=== PATIENT | female | born 1945 | race Caucasian/White ===

== ENCOUNTER 2021-08-11 01:37 | Day surgery (SDC) | payer MEDICARE, SELFPAY ==
[2021-08-01 15:10] VITALS: BMI 44.3
[2021-08-11 09:30] VITALS: BP 153/86; PULSE 69; RESP 18; TEMP 36.6; O2SAT 100; BMI 44.4
[2021-08-11] MEDS: LACTATED RINGERS 1,000 ML 150 ML IV CONT (09:59)
--- NOTE | 2021-08-11 10:35 | WPDANESEPPF ---
Anes - Initial Pre Proc Eval Procedure: Operation Date: 08/11/21 10:30 Proposed Procedures p Screening Colonoscopy - Harjinder Godinez MD Date/Time: 08/11/21 10:35 Surgeon: Harjinder Godinez MD Pre Op Diagnosis: hx of colon polyps Patient Data Age: 76 Gender: F Height: 1.52 m Weight: 103.2 kg Last Vital Signs Temp 97.9 F 08/11/21 09:30 Pulse 69 08/11/21 09:30 Resp 18 08/11/21 09:30 BP 153/86 H 08/11/21 09:30 Pulse Ox 100 08/11/21 09:30 Allergies Allergy/AdvReac Type Severity Reaction Status Date / Time No Known Allergies Allergy Mild Verified 08/11/21 09:37 Home Medications Medication Instructions Recorded Confirmed Type aspirin 81 mg tablet,delayed 81 mg PO DAILY 06/02/19 08/11/21 History release latanoprost 0.005 % eye drops 1 drop EACH EYE DAILY 06/02/19 08/11/21 History multivit with 1 tablet PO DAILY 06/02/19 08/11/21 History fgtslddh-brvo-PM-lutein 8 mg iron-400 mcg-300 mcg tablet omega-3 fatty acids 1,000 mg 1,000 mg PO DAILY 06/02/19 08/11/21 History capsule meloxicam 15 mg tablet 15 mg PO DAILY 08/21/19 08/11/21 History lisinopril 10 mg tablet 10 mg PO DAILY #90 tablet 04/20/21 08/11/21 Rx ascorbic acid (vitamin C) 500 mg 500 mg PO DAILY cap 07/04/21 08/11/21 History capsule calcium carbonate 600 mg-vitamin 1 cap PO DAILY cap 07/04/21 08/11/21 History D3 25 mcg (1,000 unit) capsule meclizine 25 mg PO PRN PRN 08/01/21 08/11/21 History omeprazole 20 mg capsule,delayed 20 mg PO DAILY #90 cap 08/01/21 08/11/21 Rx release wheat dextrin-calc glucon,lact 3 g PO DAILY 08/01/21 08/11/21 History [Benefiber Plus Calcium] Patient hx anesthesia problems: none Family hx anesthesia problems: none Results Review: All pre-operative results and documents have been reviewed as part of the pre-operative evaluation. [facility] Past Medical History Medical History Backache without radiation Essential (primary) hypertension GERD without esophagitis H/O vaginal delivery 1967 and 1969 History of colon cancer History of kidney stones 1989 History of stress test 2009 Lipids abnormal Neuroma toe Osteopenia Unspecified osteoarthritis, unspecified site Surgical History Surgical History History of lithotripsy 1989 History of tonsillectomy History of total right knee replacement (~01/21/20) Family History Family History Grandparent Liver cancer Mother Heart disease Arthritis Dementia Father Heart disease Arthritis Social History Social History Smoking status: Former smoker Tobacco type: cigarettes Second hand tobacco smoke exposure: No Smoking end date: 05/07/98 Alcohol intake: never Substance use: never Substance use type: does not use Living arrangements: with family Spiritual care concerns: No Anes - Eval Final PreProcedure Day of Procedure 08/11/21 10:35 Patient weight: morbidly obese Heart: regular rate and rhythm Lungs: clear to auscultation Airway: Mallampati scale class III Neurological: alert and oriented Last oral intake: >/= 8 hours ASA classification: III Emergent: no Anesthetic plan: proceed Anesthesia type and monitoring: general GIVS and standard monitoring Results Review: All pre-operative results and documents have been reviewed as part of the pre-operative evaluation. Informed Consent: The patient's anesthetic plan and its attendant risks and benefits were discussed with the patient/family/POA. Questions were solicited and answers provided to the satisfaction of the patient/family/POA.
--- NOTE | 2021-08-11 10:35 | WPDGICN ---
Assessment and Plan Assessment and plan (1) History of colon polyps: Code(s): Z86.010 - Personal history of colonic polyps Status: Acute Assessment and Plan: Patient has a prior history of colon polyps removed by colonoscopy 2017. For this reason patient presents for surveillance colonoscopy. Further recommendations will be given after endoscopy. GI Consult Note Consult date/time: 08/11/21 10:35 HPI: Sol Crespo is a 76 year old female Presents for screening colonoscopy. Patient has a prior history of colon polyps in 2017. She reports her current weight appetite and bowel movements are normal. She denies abdominal pain. She has had no bleeding. Family history significant her brother had colon resection for an uncertain etiology. She presents today for neoplasia screening. Review of Systems Review of Systems: All systems reviewed & are unremarkable except as noted in HPI and below PMFSH Past Medical History Medical History Backache without radiation Essential (primary) hypertension GERD without esophagitis H/O vaginal delivery 1967 and 1969 History of colon cancer History of kidney stones 1989 History of stress test 2008 Lipids abnormal Neuroma toe Osteopenia Unspecified osteoarthritis, unspecified site Surgical History Surgical History History of lithotripsy 1989 History of tonsillectomy History of total right knee replacement (~01/21/20) Family History Family History Grandparent Liver cancer Mother Heart disease Arthritis Dementia Father Heart disease Arthritis Social History Social History Smoking status: Former smoker Tobacco type: cigarettes Second hand tobacco smoke exposure: No Smoking end date: 05/07/98 Alcohol intake: never Substance use: never Substance use type: does not use Living arrangements: with family Spiritual care concerns: No Meds Home Medications and Allergies Home Medications Medication Instructions Recorded Confirmed Type aspirin 81 mg tablet,delayed 81 mg PO DAILY 06/02/19 08/11/21 History release latanoprost 0.005 % eye drops 1 drop EACH EYE DAILY 06/02/19 08/11/21 History multivit with 1 tablet PO DAILY 06/02/19 08/11/21 History cnfalcjy-xydd-UO-lutein 8 mg iron-400 mcg-300 mcg tablet omega-3 fatty acids 1,000 mg 1,000 mg PO DAILY 06/02/19 08/11/21 History capsule meloxicam 15 mg tablet 15 mg PO DAILY 08/21/19 08/11/21 History lisinopril 10 mg tablet 10 mg PO DAILY #90 tablet 04/20/21 08/11/21 Rx ascorbic acid (vitamin C) 500 mg 500 mg PO DAILY cap 07/04/21 08/11/21 History capsule calcium carbonate 600 mg-vitamin 1 cap PO DAILY cap 07/04/21 08/11/21 History D3 25 mcg (1,000 unit) capsule meclizine 25 mg PO PRN PRN 08/01/21 08/11/21 History omeprazole 20 mg capsule,delayed 20 mg PO DAILY #90 cap 08/01/21 08/11/21 Rx release wheat dextrin-calc glucon,lact 3 g PO DAILY 08/01/21 08/11/21 History [Benefiber Plus Calcium] Allergies Allergy/AdvReac Type Severity Reaction Status Date / Time No Known Allergies Allergy Mild Verified 08/11/21 09:37 Vital Signs Vital Signs - 24 hr 08/11/21 09:30 Temperature 97.9 F Pulse Rate 69 Respiratory Rate 18 Blood Pressure 153/86 H Pulse Oximetry 100 Exam Narrative: Physical exam reveals patient to be alert. Vital signs stable. HEENT exam is unremarkable. Patient is anicteric. Lungs are clear to auscultation and percussion. Heart is without murmur or extra sounds. Abdominal exam bowel sounds present soft nontender with no organomegaly. Digital external rectal exam is normal.
[2021-08-11 11:03] VITALS: BP 99/51; PULSE 82; RESP 17; O2SAT 98
[2021-08-11 11:13] VITALS: BP 117/60; PULSE 73; RESP 15; O2SAT 98
[2021-08-11 11:23] VITALS: BP 144/79; PULSE 66; RESP 18; O2SAT 98
== END 2021-08-11 11:36 | disposition home or self-care (01) ==
PROVIDERS: PCP Family Medicine; Visit Provider Internal Medicine Gastroenterology
PROC: 0DJD8ZZ Inspection of Lower Intestinal Tract, Via Natural or Artificial Opening Endoscopic (ICD-10-PCS; CPT 45378; principal; 2021-08-11 10:30)
DX: Z12.11 Encounter for screening for malignant neoplasm of colon (principal); K64.8 Other hemorrhoids; K57.30 Diverticulosis of large intestine without perforation or abscess without bleeding; Z86.010 Personal history of colon polyps; I10 Essential (primary) hypertension; K21.9 Gastro-esophageal reflux disease without esophagitis; Z85.038 Personal history of other malignant neoplasm of large intestine; Z87.891 Personal history of nicotine dependence; Z79.82 Long term (current) use of aspirin; E66.01 Morbid (severe) obesity due to excess calories; Z68.41 Body mass index [BMI] 40.0-44.9, adult
CPT/HCPCS: G0105; J2704; J7120

== ENCOUNTER 2022-01-03 08:00 | Outpatient (CLI) | payer MEDICARE, SELFPAY ==
[2022-01-03 18:53] LABS: Basophils Percent Auto 0.2 % (0.2-1.2); Eosinophils Absolute Auto 0.1 K/mm3 (0-0.3); Eosinophils Percent Auto 2.6 % (0-4.4); Hematocrit 41.6 % (37.0-47.0); Hemoglobin 13.8 g/dL (12.0-15.0); Immature Granulocyte Absolute 0.02 K/mm3 (0.00-0.031); Immature Granulocyte Percent A 0.4 % (0-0.5); Lymphocytes Absolute Auto 2.19 K/mm3 (0.9-3.2); Lymphocytes Percent Auto 44.2 % (18.3-44.2); Mean Corpuscular HGB Conc 33.2 g/dl (32-36); Mean Corpuscular Hemoglobin 31.4 pg (26-34); Mean Corpuscular Volume 94.5 fl (80-100); Mean Platelet Volume 11.5 fl (7.4-10.4); Monocytes Absolute Auto 0.5 K/mm3 (0.1-0.6); Monocytes Percent Auto 10.3 % (2.6-8.5); Neutrophils Absolute Auto 2.1 K/mm3 (1.3-6.7); Neutrophils Percent Auto 42.3 % (45.5-73.1); Platelet Count Result 163 k/mm3 (150-375); Red Cell Distribution Width 12.8 % (11.5-14.5)
[2022-01-03 19:04] LABS: Alanine Aminotransferase 42 U/L (6-35); Albumin Level 3.9 g/dL (3.5-5.1); Alkaline Phosphatase 70 U/L (38-126); Anion Gap 9 mmol/L (8-16); Aspartate Amino Transferase 49 U/L (14-36); Bilirubin,Total 0.6 mg/dL (0.2-1.3); Blood Urea Nitrogen 16 mg/dL (7-17); Calcium 9.2 mg/dL (8.4-10.2); Carbon Dioxide 28 mmol/L (22-30); Chloride 102 mmol/L (98-107); Cholesterol 171 mg/dL (0-200); Estimated Glomerular Filt Rate > 60; Glucose 96 mg/dL (65-110); HDL Direct 35 mg/dL; Potassium 4.1 mmol/L (3.4-5.0); Sodium 139 mmol/L (137-145); Triglycerides 111 mg/dL (<150)
[2022-01-03 19:14] LABS: LDL Cholesterol Direct 107 mg/dL
== END 2022-01-03 08:01 | disposition home or self-care (01) ==
PROVIDERS: PCP Family Medicine; Visit Provider Nurse Practitioner
DX: E78.5 Hyperlipidemia, unspecified (principal); I10 Essential (primary) hypertension
CPT/HCPCS: 36415; 80053; 80061; 85025

== ENCOUNTER 2022-08-16 08:45 | Outpatient (RCR) | payer MEDICARE, SELFPAY ==
--- NOTE | 2022-07-20 09:33 | PTOPEVAL1 ---
Assessment and note entered by Marya Rdz, PT Evaluation Information Assessment Status Evaluation Diagnosis BPPV Onset 3 weeks ago Subjective Information Reports has had this previously a couple years ago , had therapy at [place]. Still has the exercises from this but MD wanted her to do therapy. Has also tried to increase water intake and symptoms went away and all of a sudden is back again. Notices the most at night when has been laying for a while, has to sit on edge of bed before gets up . States is more lite headed and when gets up to go to bathroom walks like I'm drunk and notes sometimes with turning over in bed has symptoms. Sometimes with getting up from being in recliner also has difficulty getting balance. Reported Pain Level Pain Score 0: Self Report Assessment PT Clinical Summary Pt presents w/ c/o dizziness with position changes and reports difficulty with ambulation at times as well. Evaluation shoes (+) L S [place]pike, and (+) L Horizontal Roll as well as decreased static balance and [place] of 40/56. Pt will benefit from physical therapy to address BPPV, balance, and gait to reduce risk of fall with injury and return to prior level of function without dizziness. Plan of Care Interventions Neuro Re-education,Patient/Caregiver Educati, Therapeutic Activities,Therapeutic Exercise PT Services Indicated Yes Treatment Frequency and 1-2x weekly x 4 weeks Duration These treatments will address the objective and functional deficits as defined above. The patient will be advanced safely and appropriately in order for the patient to progress towards his/her prior level of function. Additional exercises will be introduced and as well as a comprehensive home exercise program upon discharge, if needed, ?to ensure carryover of functional gains achieved in the clinic. This treatment plan has been reviewed and agreement upon by the patient.
--- NOTE | 2022-07-28 11:56 | PTOPPROGNS ---
Assessment and note entered by Marya Rdz, PT Assessment Status Progress Report Diagnosis BPPV Subjective Information Reports feels 100% better , states no longer has issues getting up in the middle of the night to go to the bathroom, turning over in bed, or getting up from the recliner Assessment PT Clinical Summary Pt reports feeling 100% improved overall. Wilbero's no symptoms w/ [place]-Hallpike or roll testing today. Static balance is greatly improved in her [place] scores and static balance testing. She does continue to have some balance deficits but she reports she is at her normative balance. Pt educated on plan of care, regarding resolutions of symptoms. Appointments all cancelled with exception of last appointment (original reevaluation date) due to completion of therapy plan of care. Should patient continue to feel 100% improved, she will call to cancel last appointment. Otherwise she has been release to return to normal activities. Plan of Care Likely D/C pending maintenance of progress outside of therapy. These treatments will address the objective and functional deficits as defined above. The patient will be advanced safely and appropriately in order for the patient to progress towards his/her prior level of function. Additional exercises will be introduced and as well as a comprehensive home exercise program upon discharge, if needed, ?to ensure carryover of functional gains achieved in the clinic. This treatment plan has been reviewed and agreement upon by the patient.
--- NOTE | 2022-08-16 11:12 | PTOPDC ---
Assessment and note entered by Marya Rdz, PT Assessment Status Discharge Diagnosis BPPV Subjective Information After return to therapy and change of [place] side, pt reports feeling 95% better. States only time has symptoms is sometimes wiht bending way over and returning to standing Reported Pain Level Pain Score 0: Self Report Assessment PT Clinical Summary Pt initially treated for left sided BPPV and reported 100% resolution quickly. Approximately 1- 2 weeks later, pt called stating having increased symptoms. With reevaluation pt showed symptoms related to right sided BPPV. Was treated for right side and is now reports 95% improved overall. Reports having mild deficits with bending way down forward and this isn't all the time. She reports improvement in symptoms with rolling over in bed an with getting up at night to go to the bathroom. She has also met all therapist related goals for balance and function. Thus patient is being discharged due to completion of therapy.
== END 2022-08-16 11:24 | disposition home or self-care (01) ==
LOC: ANHHIPT 08:45
PROVIDERS: PCP Family Medicine; Visit Provider Family Medicine
DX: H81.13 Benign paroxysmal vertigo, bilateral (principal)
CPT/HCPCS: 95992; 97110; 97112; 97161

== ENCOUNTER 2023-01-29 10:49 | Outpatient (CLI) | payer MEDICARE, SELFPAY ==
[2023-01-29 18:39] LABS: Alanine Aminotransferase 22 U/L (6-35); Albumin Level 3.8 g/dL (3.5-5.1); Alkaline Phosphatase 73 U/L (38-126); Anion Gap 3 mmol/L (8-16); Aspartate Amino Transferase 27 U/L (14-36); Bilirubin,Total 0.5 mg/dL (0.2-1.3); Blood Urea Nitrogen 19 mg/dL (7-17); Calcium 9.4 mg/dL (8.4-10.2); Carbon Dioxide 32 mmol/L (22-30); Chloride 103 mmol/L (98-107); Estimated Glomerular Filt Rate > 60; Glucose 94 mg/dL (65-110); Potassium 4.8 mmol/L (3.4-5.0); Sodium 138 mmol/L (137-145)
== END 2023-01-29 10:50 | disposition home or self-care (01) ==
PROVIDERS: PCP Family Medicine; Visit Provider Family Medicine
DX: E78.89 Other lipoprotein metabolism disorders (principal); I10 Essential (primary) hypertension; Z79.899 Other long term (current) drug therapy
CPT/HCPCS: 36415; 80053

== ENCOUNTER 2023-07-11 11:06 | Outpatient (CLI) | payer MEDICARE, SELFPAY ==
--- NOTE | ~2023-07-11 | XR_ITS ---
EXAMINATION: XR lumbar spine min 4V DATE: 07/11/2023 11:24 INDICATION: Right-sided low back pain. TECHNIQUE: 5 views of lumbar spine were obtained. COMPARISON: Lumbar spine radiographs 11/28/2012 FINDINGS: There is 12 degrees dextroscoliosis of thoracolumbar spine. There is 3 mm retrolisthesis of L2 on L3. There is 6 degrees anterolisthesis of L4 on L5. Vertebral body heights are normal. There i s severely decreased disc height at L2-L3, mildly decreased disc height at L3-L4, moderately decrease d disc height at L4-L5, and severely decreased disc height at L5-S1. There is multilevel facet joint osteoarthritis, severe in the lower lumbar spine. IMPRESSION: 1. Severe lumbar spondylosis. 2. Thoracolumbar dextroscoliosis. Reviewed, dictated and finalized at location E. SCREENER OPERATOR
== END 2023-07-11 11:07 ==
PROVIDERS: PCP Family Medicine; Visit Provider Family Medicine
DX: M43.06 Spondylolysis, lumbar region (principal); M41.85 Other forms of scoliosis, thoracolumbar region
CPT/HCPCS: 72110

== ENCOUNTER 2023-07-12 08:21 | Outpatient (CLI) | payer MEDICARE, SELFPAY ==
[2023-07-12 19:23] LABS: Alanine Aminotransferase 26 U/L (6-35); Albumin Level 3.9 g/dL (3.5-5.1); Alkaline Phosphatase 95 U/L (38-126); Anion Gap 5 mmol/L (8-16); Aspartate Amino Transferase 48 U/L (14-36); Bilirubin,Total 0.7 mg/dL (0.2-1.3); Blood Urea Nitrogen 19 mg/dL (7-17); Calcium 9.4 mg/dL (8.4-10.2); Carbon Dioxide 29 mmol/L (22-30); Chloride 105 mmol/L (98-107); Cholesterol 170 mg/dL (0-200); Estimated Glomerular Filt Rate > 60; Glucose 91 mg/dL (65-110); HDL Direct 42 mg/dL; Potassium 4.6 mmol/L (3.4-5.0); Sodium 139 mmol/L (137-145); Triglycerides 89 mg/dL (<150)
[2023-07-12 19:34] LABS: LDL Cholesterol Direct 109 mg/dL
[2023-07-12 19:37] LABS: Basophils Percent Auto 0.5 % (0.2-1.2); Eosinophils Absolute Auto 0.1 K/mm3 (0-0.3); Eosinophils Percent Auto 2.2 % (0-4.4); Hematocrit 43.9 % (37.0-47.0); Hemoglobin 14.4 g/dL (12.0-15.0); Immature Granulocyte Absolute 0.01 K/mm3 (0.00-0.031); Immature Granulocyte Percent A 0.2 % (0-0.5); Lymphocytes Absolute Auto 2.37 K/mm3 (0.9-3.2); Lymphocytes Percent Auto 40.4 % (18.3-44.2); Mean Corpuscular HGB Conc 32.8 g/dl (32-36); Mean Corpuscular Hemoglobin 31.4 pg (26-34); Mean Corpuscular Volume 95.9 fl (80-100); Mean Platelet Volume 11.6 fl (7.4-10.4); Monocytes Absolute Auto 0.7 K/mm3 (0.1-0.6); Monocytes Percent Auto 11.1 % (2.6-8.5); Neutrophils Absolute Auto 2.7 K/mm3 (1.3-6.7); Neutrophils Percent Auto 45.6 % (45.5-73.1); Platelet Count Result 196 k/mm3 (150-375); Red Blood Count 4.58 M/mm3 (4.2-5.4); Red Cell Distribution Width 12.5 % (11.5-14.5); White Blood Count 5.9 K/mm3 (4.5-10.0)
[2023-07-12 20:26] LABS: Hemoglobin A1C 5.2 % (<5.7)
[2023-07-12 20:44] LABS: Vitamin D 25 Hydroxy 61.8 ng/mL
[2023-07-12 20:58] LABS: Thyroid Stimulating Hormone Reflex < 0.015 uIU/mL (0.465-4.68)
[2023-07-12 22:07] LABS: Free T4 Free Thyroxine Reflex 1.17 ng/dL (0.78-2.19)
[2023-07-12 23:28] LABS: Total Triiodothyronine (T3) 1.58 NG/ML (0.97-1.69)
== END 2023-07-12 08:22 | disposition home or self-care (01) ==
PROVIDERS: PCP Family Medicine; Visit Provider Family Medicine
DX: H81.13 Benign paroxysmal vertigo, bilateral (principal); I10 Essential (primary) hypertension; E78.5 Hyperlipidemia, unspecified; R73.9 Hyperglycemia, unspecified; E53.8 Deficiency of other specified B group vitamins; E55.9 Vitamin D deficiency, unspecified
CPT/HCPCS: 36415; 80053; 80061; 82306; 82607; 83036; 84439; 84443; 84480; 85025

== ENCOUNTER 2023-07-17 09:08 | Outpatient (CLI) | payer MEDICARE, SELFPAY ==
--- NOTE | 2023-07-31 16:51 | WPDSLEEPSTUD ---
Sleep Study Date of Study: 07/17/23 Ordering Provider: Mery Singer MD Interpreting Physician: Ruthie Bernard DO Sleep Study Type: Split Polysomnogram Height: 1.52 m Weight: 104.326 kg Body Mass Index: 44.9 Neck Circumference (inches): 17 [place]: 8 Reason for Sleep Study Nocturia Sleep History The patient is a 78-year-old female with hypertension, GERD, chronic low back pain, osteopenia and history of tobacco use that had a sleep study by primary care physician for evaluation of sleep apnea. The patient denies awakening from sleep short of breath. She frequently awakens at night with heartburn, belching or cough. She denies snoring loudly enough that others complain. She occasionally has trouble sleeping when she has a cold. She denies waking up gasping for air throughout the night. She denies having breathing problems at night observed by herself or others. She rarely sweats excessively at night. She denies having heart palpitations or irregular heartbeats during the night. She occasionally falls asleep during the day but never while driving. She denies sleep paralysis, cataplexy and hypnagogic / hypnopompic hallucinations. She denies having trouble at school or work due to sleepiness. She denies feeling afraid of going to sleep. She occasionally has nightmares. She rarely remembers her dreams. She occasionally has thoughts racing through her mind. She denies feeling sad or depressed. She rarely has anxiety. She occasionally has muscular tension. She frequently notices parts of her body jerk. She denies kicking during the night. She rarely has crawling and aching feelings in her legs but occasionally has leg pain during the night. She denies grinding her teeth during sleep and denies awakening with morning jaw pain. She is constantly bothered by pain during the day and frequently awakened by pain during the night. She denies waking up feeling stiff in the morning. She rarely wakes up with sore or achy muscles. She rarely wakes up with pain in the neck, spine and other joints. She goes to bed between 9-930 p.m. on both weekdays and weekends. He can take her up to an hour to fall asleep. She wakes up at least 3 times throughout the night to urinate. She wakes up at 6:30 a.m. on both weekdays and weekends. She typically gets 9 hours of sleep per night. She will stay in bed for a few minutes after waking up in the morning. She currently lives with her . She denies consuming any caffeinated beverages within 2 hours of bedtime. She denies engaging in physical exercise before bedtime. She will read before falling asleep. She will occasionally take naps in the afternoon or the evening but they are not refreshing. She quit smoking cigarettes 24 years ago. She denies caffeine, alcohol and recreational drug use. [facility] Past Medical History Medical History Backache without radiation Chronic low back pain with right-sided sciatica Environmental allergies Essential (primary) hypertension GERD without esophagitis H/O vaginal delivery 1967 and 1969 History of colon polyps History of COVID-19 (~11/2021) History of kidney stones 1989 History of stress test 2008 Lipids abnormal Neuroma toe Osteopenia Unspecified osteoarthritis, unspecified site Vitamin D deficiency Surgical History Surgical History History of lithotripsy (~1989) 1989 History of tonsillectomy (~1953) History of total right knee replacement (~01/21/20) Family History Family History Grandparent Liver cancer Mother Heart disease Arthritis Dementia Father Heart disease Arthritis Social History Social History Smoking status: Former smoker Tobacco type: cigarettes Second hand toba
[2023-08-01 18:30] VITALS: BMI 44.9
== END 2023-07-18 07:24 | disposition home or self-care (01) ==
LOC: ANHCSM 09:08
PROVIDERS: PCP Family Medicine; Visit Provider Family Medicine
DX: G47.33 Obstructive sleep apnea (adult) (pediatric) (principal); R40.0 Somnolence; I10 Essential (primary) hypertension
CPT/HCPCS: 95811

== ENCOUNTER 2023-08-10 09:59 | Outpatient (CLI) | payer MEDICARE, SELFPAY ==
--- NOTE | ~2023-08-10 | MM_ITS ---
EXAMINATION: MM screening sheela BI w [facility] HISTORY: Screening TECHNIQUE: Craniocaudal and mediolateral oblique 3-D tomosynthesis images were obtained and synthetic 2-D images were generated. CAD analysis was submitted and interpreted. COMPARISON: Not dense: There are scattered areas of fibroglandular density. BREAST PARENCHYMAL COMPOSITION: FINDINGS: There is no evidence of suspicious mass, calcification, or architectural distortion to sugg est malignancy in either breast. There has been no suspicious interval change. IMPRESSION: 1. No mammographic evidence of malignancy. 2. Recommend routine screening mammography in one year. BI-RADS Category 1: Negative Reviewed, dictated and finalized at location A.
--- NOTE | ~2023-08-10 | DEXA_ITS ---
Bone Density Report Name: GUNJAN CORNELL Age: 78 Sex: Female Ethnicity: White Date of : 1945 Indication: postmenopausal; screening for osteoporosis; Referring Provider: RIA ALCOCER Study: Bone densitometry was performed. Exam Date: August 10, 2023 Accession number: [id number] Bone Density: Region BMD T-score Z-score Classification AP Spine(L1-L4) 1.069 0.2 2.8 Normal Femoral Neck (Left) 0.725 -1.1 1.1 Osteopenia Total Hip (Left) 0.929 -0.1 1.9 Normal Femoral Neck (Right) 0.681 -1.5 0.7 Osteopenia Total Hip (Right) 0.840 -0.8 1.1 Normal Total Hip Mean 0.885 -0.5 1.5 Normal World Health Organization criteria for BMD impression classify patients as: Normal (T-score at or above -1.0), Osteopenia (T-score between -1.0 and -2.5), or Osteoporosis (T-score at or below -2.5). 10-year Fracture Risk(1): Major Osteoporotic Fracture 11% Hip Fracture 2.3% Reported Risk Factors: [place] (), Neck BMD=0.681, BMI=43.6 (1) FRAX(R) Version 3.08. Fracture probability calculated for an untreated patient. Fracture probability may be lower if the patient has received treatment. Clinical Information Provided by Patient: Has used the following medications: Vitamin D, Calcium, VIT C Patient maximum height was 61.5 Menopause Age: 54 No regular weight bearing exercise Drinks caffeinated beverages Onset of menses at age 13 Number of children 2 Impression: The patient has low bone mass, based on the Right Femoral Neck T-score. The patient has an estimated ten-year risk of hip fracture of 2.3% and an estimated ten-year risk of major fracture of 11%, based on the WHO FRAX algorithm. Discussion: BONE DENSITY IS LOW AT ONE OR MORE SKELETAL SITES. This patient's lowest T-score is low at one or more skeletal sites. It meets the World Health Organization's (WHO) criteria for ?low bone mass? (T-score between -1.0 and -2.5). The patient's 10-year risk of fracture as calculated by FRAX is less than the threshold where pharmacological therapy is recommended by the National Osteoporosis Foundation (NOF). However, all treatment decisions require clinical judgment and consideration of individual patient factors, including patient preferences, comorbidities, previous drug use, risk factors not captured in the FRAX model (e.g., frailty, falls, vitamin D deficiency, increased bone turnover, interval significant decline in bone density) and possible under or overestimation of fracture risk by FRAX. The patient should follow a healthful lifestyle (good nutrition with adequate calcium and vitamin D, and appropriate weight-bearing exercise). Follow-Up: Consider repeating this study in 2 to 3 years to reassess this patient's status, or sooner if there is some new clinical indication. Reported by: HENRIETTA
== END 2023-08-10 10:00 | disposition home or self-care (01) ==
LOC: ANHIMG 10:00
PROVIDERS: PCP Family Medicine; Visit Provider Family Medicine
DX: Z12.31 Encounter for screening mammogram for malignant neoplasm of breast (principal); Z78.0 Asymptomatic menopausal state; M85.852 Other specified disorders of bone density and structure, left thigh; M85.851 Other specified disorders of bone density and structure, right thigh
CPT/HCPCS: 77063; 77067; 77080

== ENCOUNTER 2023-08-27 12:31 | Outpatient (CLI) | payer MEDICARE, SELFPAY ==
[2023-08-27 19:31] LABS: Thyroid Stimulating Hormone 0.104 uIU/mL (0.465-4.680); Total Triiodothyronine (T3) 1.31 NG/ML (0.97-1.69)
[2023-08-27 19:50] LABS: Free T4 Free Thyroxine 1.29 ng/mL (0.78-2.19)
[2023-08-29 08:09] LABS: Thyroid Peroxidase Antibodies 28 IU/mL (<9)
[2023-09-03 20:58] LABS: Thyroid Stimulating Immunoglob 259 % baseline (<140)
== END 2023-08-27 12:32 | disposition home or self-care (01) ==
PROVIDERS: PCP Family Medicine; Visit Provider Family Medicine
DX: R40.0 Somnolence (principal); R79.89 Other specified abnormal findings of blood chemistry
CPT/HCPCS: 36415; 83519; 84439; 84443; 84445; 84480; 86376; 86800

== ENCOUNTER 2023-09-14 12:30 | Outpatient (RCR) | payer MEDICARE, SELFPAY ==
--- NOTE | 2023-07-27 17:31 | PTOPEVAL1 ---
Assessment and note entered by Marya Rdz, PT Evaluation Information Assessment Status Evaluation Diagnosis lumbago with sciatica right side, chronic pain Therapy conditions weakness abnormal posture other abnormalities of mobility and gait Subjective Information Pt states right foot tingles like it had been sleeping. This was a month ago also had pain in the outside of the right leg up to the hip. Not it depends on how she sits, if is in a chair wiht longer leg support, or getting in the car the foot will tingle then when gets out will hurt in the knee and right leg and can hardly walk. Has always had back pain and previously had sciatica but didn't feel like this. Went to the MD and got muscle relaxer, took them as needed. Has been feeling good last couple of days, but notes anytime gets in car or truck will have increased pain Her exercises in the morning include ankle pumps, long arc quads, and pelvic tilts x 10 each Reported Pain Level Pain Score 0: Self Report Assessment PT Clinical Summary Pt presents with chronic pain history and recent sciatica of the right side. Chart review shows multiple levels of degeneration and anterolisthesis. She also shows multiple areas of decreased flexibility including hamstrings and hip flexors bilat, as well as weakness and difficulty activating gluteal muscles. Pt will benefit from physical therapy to address deficits, improve pain , and improve function Plan of Care Interventions Electrical Stimulation,Gait Training,Hot Pack/Cold Pack,Manual Therapy,Mechanical Traction,Neuro Re- education,Therapeutic Activities,Therapeutic Exercise,Ultrasound PT Services Indicated Yes Treatment Frequency and 1-2x weekly x 12 visits Duration These treatments will address the objective and functional deficits as defined above. The patient will be advanced safely and appropriately in order for the patient to progress towards his/her prior level of function. Additional exercises will be introduced and as well as a comprehensive home exercise program upon discharge, if needed, ?to ensure carryover of functional gains achieved in the clinic. This treatment plan has been reviewed and agreement upon by the patient.
--- NOTE | 2023-07-27 17:32 | OPREHPOC ---
Outpatient Therapy Plan of Care This is a Multidisciplinary Plan of Care that may contain components documented by all disciplines (PT, OT, and ST.) PT Goal 1 Goal Pt will be independent in HEP Pt will verbalize understanding of diagnosis and prognosis Target Visit 6 PT Problem 2 PT Problem #2 Pain PT Goal 1 Goal Pt will report greatest pain level at 3/10 or less to improve ADLs and activities Target Visit 6 PT Goal 2 Goal Pt will report greatest pain level at 1/10 or less to improve ADLs and activities Target Visit 12 PT Problem 3 PT Problem #3 Impaired Gait PT Goal 1 Goal Pt will demo decreased Trendelenburg bilat to show improved lumbopelvic stability Target Visit 12 PT Goal 2 Goal Pt will demo upright posture with walking and appropriate hip extension Target Visit 12 PT Problem 4 PT Problem #4 Impaired Flexibility PT Goal 1 Goal Pt will demo improved hip flexor flexibility to allow hip extension for gait and posture Target Visit 12
--- NOTE | 2023-09-14 14:25 | PTOPDC ---
Assessment and note entered by Marya Rdz, PT Evaluation Information Assessment Status Progress Diagnosis lumbago with sciatica right side, chronic pain Subjective Information Self-perceived improvement: 90% Pt reports tingling and pain in the right LE has resolved (with exception of last night) Is no longer having to take medication for discomfort or pain Getting into and out of car or truck is no longer bothersome. Pt reports she was at a meeting last night sitting in a metal folding chair. At first was sitting sideways in the chair ~10 minutes then corrected this. Sat in a normal position about 30 more minutes but when went to get up almost couldn't get up. Had pain and tingling in the right leg and a pain/pinching in the right front of the thigh. Had significant difficulty wiht driving home. Got out of car wiggled around in standing and the pain resolved. Pt has also noted wearing her lumbar belt while cutting grass on riding mower has greatly improved Reported Pain Level Pain Score 0: Self Report Assessment PT Clinical Summary Pt has made significant progress with therapy as seen by improved pain reports, improved strength testing, and improved outcome measure scores. Pt reports feeling 90% improved overall. Her HEP has been updated and patient has been educated on when to return to therapy in the future if is needed. Thus patient is being discharged from therapy services at this time for completion of program. Plan of Care PT Services Indicated No
== END 2023-09-14 16:14 | disposition home or self-care (01) ==
LOC: ANHHIPT 12:30
PROVIDERS: PCP Family Medicine; Visit Provider Family Medicine
DX: M54.41 Lumbago with sciatica, right side (principal); G89.29 Other chronic pain
CPT/HCPCS: 97014; 97110; 97112; 97140; 97162; 97750; G0283

== ENCOUNTER 2024-01-31 09:25 | Outpatient (CLI) | payer MEDICARE, SELFPAY ==
[2024-01-31 15:19] LABS: Alanine Aminotransferase 23 U/L (6-35); Alkaline Phosphatase 89 U/L (38-126); Anion Gap 7 mmol/L (4-12); Aspartate Amino Transferase 55 U/L (14-36); Bilirubin,Total 0.5 mg/dL (0.2-1.3); Blood Urea Nitrogen 22 mg/dL (7-17); Calcium 9.2 mg/dL (8.4-10.2); Carbon Dioxide 29 mmol/L (22-30); Chloride 101 mmol/L (98-107); Estimated Glomerular Filt Rate > 60; Glucose 78 mg/dL (65-110); Potassium 4.4 mmol/L (3.4-5.0); Sodium 137 mmol/L (137-145)
[2024-01-31 15:32] LABS: Free T4 Free Thyroxine 1.06 ng/mL (0.78-2.19)
[2024-01-31 15:48] LABS: Thyroid Stimulating Hormone 0.652 uIU/mL (0.465-4.680); Total Triiodothyronine (T3) 1.36 NG/ML (0.97-1.69)
== END 2024-01-31 09:26 | disposition home or self-care (01) ==
PROVIDERS: PCP Family Medicine; Visit Provider Family Medicine
DX: I10 Essential (primary) hypertension (principal); R79.89 Other specified abnormal findings of blood chemistry
CPT/HCPCS: 36415; 80053; 84439; 84443; 84480

== ENCOUNTER 2024-04-15 13:15 | Outpatient (RCR) | payer MEDICARE, SELFPAY ==
--- NOTE | 2024-02-11 17:04 | PTOPEVAL1 ---
Assessment and note entered by Marya Rdz, PT Evaluation Information Assessment Status Evaluation Diagnosis lumbago with sciatica R, Oth chronic pain ICD-10 Condition Codes (PT) Pain in low back M54.50,M54.16,Pain in right hip M25.551,R26.9,Weakness R53.1 Onset chronic Subjective Information Pt states when she sits in her recliner, or certain chairs her right foot will tingle, then her right hip will hurt and the right side of her back will start to hurt. States hips will hurt in the groin. when standing the lower back will hurt. This morning had pain on left side, but sometimes will also be on the right side. States after sitting will have increased hip pain up to 9/10. States will hop when first walking, states feels like a cramp or spasm. After a few walking steps will improve. Does her exercises every morning, and this helps the back pain. Has not been doing steps recently. Doctor states is a pinched nerve, that she needs back exercises. Pt states thinks the hip has an issue. Reported Pain Level Pain Score 0,2: Self Report Assessment PT Clinical Summary Pt presents to therapy with complaints of right hip pain, tingling in right foot with sitting in certain positions, and back pain with standing and walking. Pt demos decreased LEFT hip mobility compared to right, decreased lumbar mobility, lumbar distraction reduces pain, demo's reduced flexibility of right hamstring and bilat quads, overall decreased strength, and gait abnormalities . Pt will benefit from physical therapy to address deficits, reduce pain, resolve tingling, and return to PLOF with minimal discomfort. Plan of Care Interventions Electrical Stimulation,Hot Pack/Cold Pack,Manual Therapy,Mechanical Traction,Neuro Re-education, Patient/Caregiver Educati,Therapeutic Activities, Therapeutic Exercise,Self-Care/Home Management, Ultrasound,Other Other Interventions IASTM, taping PT Services Indicated Yes Treatment Frequency and 1-2x weekly x 16 visits Duration These treatments will address the objective and functional deficits as defined above. The patient will be advanced safely and appropriately in order for the patient to progress towards his/her prior level of function. Additional exercises will be introduced and as well as a comprehensive home exercise program upon discharge, if needed, ?to ensure carryover of functional gains achieved in the clinic. This treatment plan has been reviewed and agreement upon by the patient.
--- NOTE | 2024-02-11 17:04 | OPREHPOC ---
Outpatient Therapy Plan of Care This is a Multidisciplinary Plan of Care that may contain components documented by all disciplines (PT, OT, and ST.) PT Goal 1 Goal / Goal Update Pt will be independent in HEP Pt will verbalize understanding of diagnosis and prognosis Target Visit 10 PT Problem 2 PT Problem #2 Pain PT Goal 1 Goal / Goal Update Pt will report greatest pain level at 5/10 or less in right hip to improve ADLs and activities Target Visit 10 PT Goal 2 Goal / Goal Update Pt will report resolution of pain to return to PLOF Target Visit 16 PT Problem 3 PT Problem #3 Impaired Flexibility PT Goal 1 Goal / Goal Update Pt will demo hamstring flexibility of RLE equal to LLE to offload right hip and low back discomfort Target Visit 10 PT Goal 2 Goal / Goal Update Pt will demo quads flexibility off 100 degrees or greater to offload strain on lumbar spine and improve upright postures with gait. Target Visit 16 PT Problem 4 PT Problem #4 Impaired Gait PT Goal 1 Goal / Goal Update Pt will demo improvement of gluteus medius weakness with more stable pelvic position during gait activity. Target Visit 16 PT Problem 5 PT Problem #5 Impaired Strength PT Goal 1 Goal / Goal Update Pt will demo TRAM strength of 3+/5 or greater Target Visit 10 PT Goal 2 Goal / Goal Update Pt will demo strength of gluteus medius bilat 4/5 or greater for improved lumbopelvic stability Target Visit 16
--- NOTE | 2024-03-21 12:50 | PTOPPROG ---
Assessment and note entered by Marya Rdz, PT Evaluation Information Assessment Status Progress Diagnosis lumbago with sciatica R, Oth chronic pain ICD-10 Condition Codes (PT) Pain in low back M54.50,M54.16,Pain in right hip M25.551,R26.9,Weakness R53.1 Onset chronic Subjective Information Pt states is confused as her left hip hurts now, right is usually the painful one and will have pain into glute and down leg. States had relief after last session for a short time but was hurting that night and has been hurting since. Does have a back brace would wear during her mowing. Groin pain has resolved. After sitting long periods is still having to hop the first few steps. Is now able to go up steps when couldn't before Right side has felt better since deep tissue a few sessions ago. Self-perceived improvement: 50-75% Assessment PT Clinical Summary Pt has attended therapy consistently for R/L hip pain and low back pain. She reports feeling 50% improved today and has met multiple short term goals. Today presentation cont to suggest lumbopelvic instability with minimal progression in strength. Discussed findings and possible use of DME to assist in stabilizing lumbar/pelvis to allow reduced discomfort and more focus on strengthening in the coming phase of therapy. As she is making progress and has yet to plateau in therapy, pt will benefit from cont therapy to continue improvement in order to meet maximal functional independence with less pain. Plan of Care Interventions Electrical Stimulation,Gait Training,Hot Pack/Cold Pack,Manual Therapy,Mechanical Traction,Neuro Re- education,Patient/Caregiver Educati,Therapeutic Activities,Therapeutic Exercise,Self-Care/Home Management,Ultrasound,Other Other Interventions IASTM, taping PT Services Indicated Yes Treatment Frequency and 1-2x weekly x 8 visits Duration These treatments will address the objective and functional deficits as defined above. The patient will be advanced safely and appropriately in order for the patient to progress towards his/her prior level of function. Additional exercises will be introduced and as well as a comprehensive home exercise program upon discharge, if needed, ?to ensure carryover of functional gains achieved in the clinic. This treatment plan has been reviewed and agreement upon by the patient.
--- NOTE | 2024-04-16 16:15 | PTOPDC ---
Assessment and note entered by Marya Rdz, PT Evaluation Information Assessment Status Discharge Diagnosis lumbago with sciatica R, Oth chronic pain ICD-10 Condition Codes (PT) Pain in low back M54.50,Radiculopathy, lumbar region M54.16,Pain in right hip M25.551, Abnormalities of gait and mobility R26.9,Weakness R53.1 Onset chronic Subjective Information Pt states no longer feels 50-75% improved, thinks has back slid. States feels about 50% improved overall. Today is having groin pain, but hasn't had this in a while Having to hop after sitting long periods had gone away. Yesterday and today is not a hop, but states is stiff and painful Reported Pain Level Pain Score 2,5,1: Self Report Assessment PT Clinical Summary Pt has attended therapy consistently for lumbar and bijal hip pain. Her pain would often resolve for a few days at a time with therapy but then would return. Also the discomfort often shifted from left hip to right at times with radicular symptoms . Her presentation has varied as well with some days showing improved postures and alignment/ stability with walking and other days (as in today ) Trendelenburg sigh worsened. Objectively patient has made minimal progress overall with some aspects today testing worse than previously. Discussed these findings with patient and it was agreed pt appears to have met maximal benefit with physical therapy at this time and is thus being discharged in favor of referral to specialists for additional intervention. Plan of Care PT Services Indicated No
== END 2024-04-17 08:28 | disposition home or self-care (01) ==
LOC: ANHHIPT 13:15
PROVIDERS: PCP Family Medicine; Visit Provider Family Medicine
DX: M54.41 Lumbago with sciatica, right side (principal); G89.29 Other chronic pain
CPT/HCPCS: 97012; 97014; 97110; 97140; 97162; 97750; G0283

== ENCOUNTER 2024-07-23 10:18 | Outpatient (CLI) | payer MEDICARE, SELFPAY ==
--- OUTSIDE RECORDS SUMMARY | 2024-07-23 11:44 | XMS_ITS | Clinical Summary ---
Author Organization [facility] Address [address] [place] [address] Care Team Providers Care Tire Inspector Name Role Phone Deng Boone MD Unavailable [phone] Mery Singer MD Primary Care Provider Source Comments [facility],non-owned Affiliates and Associated Physician Practices is amultiple site organization consisting of ambulatory clinics and hospital sitesin [place], [place], [place] and [place]. This disclosure is being madepursuant to the Care Everywhere program and may not contain all information available regarding this patient. Last updated 18.[facility] Allergies No known active allergies Medications * Be aware that medications may not be up to date on this document. Alwaysverify current medications with the patient. Medication Sig Dispensed Refills Start Date End Date Status omeprazole (PRILOSEC) 20 MG capsule Take 1 capsule by mouth once daily 04/07/2019 Active lisinopril (PRINIVIL; ZESTRIL) 10 MG tablet Take 1 tablet by mouth once daily 04/22/2016 Active [place]-3 Fatty Acids (FISH OIL) 1200 MG Take by mouth once daily Active multivitamin daily tablet Take 1 tablet by mouth daily with food Active ascorbic acid (VITAMIN C) 250 MG chewable tablet Take by mouth once daily Active Wheat Dextrin (BENEFIBER PO) Take by mouth once daily Active meloxicam (MOBIC) 15 MG tablet TAKE 1 TABLET BY MOUTH EVERY DAY 30 tablet 5 01/15/2020 Active latanoprost (XALATAN) 0.005 % ophthalmic solution INSTILL 1 DROP INTO BOTH EYES DAILY AT BEDTIME. 03/01/2020 Active meloxicam (MOBIC) 15 MG tabletIndications:Pre sence of right artificial knee joint TAKE 1 TABLET BY MOUTH EVERY DAY 90 tablet 3 06/03/2021 Active amLODIPine (Norvasc) 5 MG tablet 08/04/2023 Active Active Problems Problem Noted Date Diagnosed Date Preop examination 01/06/2020 Primary osteoarthritis of right knee 07/08/2019 Social History Tobacco Use Types Packs/Day Years Used Date Smoking Tobacco: Former Cigarettes Q uit: 1998 Smokeless Tobacco: Never Alcohol Use Standard Drinks/Week Comments Never 0 (1 standard drink = 0.6 oz pur e alcohol) AUDIT-C Answer Date Recorded Q1: How often do you have a drink containing alc ohol? Never 01/07/2020 Average Number of Drinks Not on file 020 Frequency of Binge Drinking Not on file 06/2019 Sex and Gender Information Value Date Recorded Sex Assigned at Not on file Gender Identity Not on file Sexual Orientation Not on file Last Filed Vital Signs Vital Sign Reading Time Taken Comments Blood Pressure 152/72 01/22/2020 7:48 AM CDT Pulse 65 01/22/2020 7:48 AM CDT Temperature 36.4 C (97.5 F) 01/22/2020 7:48 AM CDT Respiratory Rate 16 01/22/2020 7:48 AM CDT Oxygen Saturation 99% 01/22/2020 7:48 AM CDT Inhaled Oxygen Concentration - - Weight 98.3 kg (216 lb 12.8 oz) 01/21/2020 9:06 AM CDT Height 157.5 cm (5' 2 ) 01/21/2020 9:06 AM CDT Body Mass Index 39.65 01/21/2020 9:06 AM CDT Plan of Treatment Health Maintenance Due Date Last Done Comments MEDICARE AWV 12 MONTHS 1945 HEPATITIS C SCREENING 04/27/1963 DTAP/TDAP/TD VACCINES (1 - Tdap) 1964 PNEUMOCOCCAL VACCINE 50+ (1 of 1 - PCV) 1995 ZOSTER VACCINE (1 of 2) 1995 Respiratory Syncytial Virus (RSV) Vaccine Pt: or over 60 yrs (1 - 1-dose 75+ series) 2020 COVID-19 VACCINE (3 - 2023-2 5 season) 2024 07/27/2020, 07/01/2020 INFLUENZA VACCINE (#1) 2024 DEPRESSION SCREENING 05/07/2024 BONE DENSITY TESTING Completed 09/13/2020 HEPATITIS B VACCINE Aged Out No longe r eligible based on patient's age to complete this topic HIB VACCINE Aged Out No longer eligi ble based on patient's age to complete this topic HPV VACCINE Aged Out No longer eligi ble based on patient's age to complete this topic MENINGOCOCCAL (Group B) VACCINE SHARED DECISION-MAKING Aged Out No longer eligible based on patient's age to complete this topic MENINGOCOCCAL GROUPS A/C/Y/W VACCINE Aged Out No longer eligible b ased on patient's age to complete this topic Medical Devices Implanted Type Area Heating Repair Technician Device Identifier Shelf Expiration Date Model / Serial / Lot Cmnt Bone Djo Srg Cblt 40gm Hvisc Strl Implanted:Qty: 1 on 01/21/2020 by Deng Boone MD at [facility] Right: Knee [employer] 01/28/2021 [id number] / / [id number] Tray Tib 71mm Kn Cocr I Beam Implanted:Qty: 1 on 01/21/2020 by Deng Boone MD at [facility] Right: Knee [employer] 11/07/2029 [id number] / / [id number] Cmpnt Fem Kn Rt Cr Cmnt Prm Vngrd Intlk Implanted:Qty: 1 on 01/21/2020 by Deng Boone MD at [facility] Right: Knee [employer] 11/10/2029 [id number] / / [id number] Cmpnt Ptlr 28mm 1 Pg Wire Ascnt Arcm Kn Implanted:Qty: 1 on 01/21/2020 by Deng Boone MD at [facility] Right: Knee [employer] 09/21/2024 [id number] / / [id number] [id number] Vngrd Arcm Kn Ant Stab Implanted:Qty: 1 on 01/21/2020 by Deng Boone MD at [facility] Right: Knee [employer] 11/18/2024 [id number] / / [id number] Advance Directives Documents on File Type Date Recorded Patient Attendant Sales Expl anation Adv Directive/Living Will/POA 01/23/2020 6:03 PM * Full Code (Latest Code Status on File) Date Activated Date Inactivated Comments 01/21/2020 1:28 PM 01/22/2020 1:56 PM Care Teams Tire Inspector Relationship Specialty Start Date End Date Mery Singer MD [address] [place] [id number] PCP - General Family Medicine 07/08/19 [place] [id number] [address] Orthopedic Surgery 07/08/19
--- OUTSIDE RECORDS SUMMARY | 2024-07-23 11:44 | XMS_ITS | Clinical Summary ---
Author Organization [facility] Address [address] [place] [id number] Care Team Providers Care Lead Java Software Engineer Name Role Phone Mery Singer MD Primary Care Provider Medications No known medications Active Problems Problem Noted Date Diagnosed Date Posterior tibial tendinitis of left leg 09/07/19 23 Social History Tobacco Use Types Packs/Day Years Used Date Smoking Tobacco: Never Assessed Comments Unknown Sex and Gender Information Value Date Recorded Sex Assigned at Not on file Legal Sex Female 7:06 PM CDT Gender Identity Not on file Sexual Orientation Not on file Plan of Treatment Health Maintenance Due Date Last Done Comments Hepatitis C 1963 DTaP, Tdap and Td Vaccines ( 1 - Tdap) 1964 Zoster Vaccines (1 of 2) 1995 Annual Medicare Wellness Visit 2010 Pneumococcal Vaccine: 65+ Years (2 of 2 - PPSV23 or PCV20) 03/25/2020 03/25/2019 RSV Immunization or 60+ Years (1 - 1-dose 75+ series) 2020 COVID-19 Vaccine (3 - 2023-2 5 season) 2024 07/27/2020, 07/01/2020 Influenza Adult (#1) 2024 03/14/2018 Dexa Scan (General) Completed 09/13/2020 Meningococcal B Vaccine Aged Out No l onger eligible based on patient's age to complete this topic Meningococcal Vaccine Aged Out No rigoberto caty eligible based on patient's age to complete this topic RSV Immunizations Under 20 Months Aged Out No longer eligible b ased on patient's age to complete this topic Procedures Procedure Name Priority Date/Time Associated Diagnosis Comments BONE DENSITY/DEXA Routine 09/13/2020 10: 43 AM CDT Postmenopausal from Last 3 Months or Most Recently Relevant to Health Maintenance Results * BONE DENSITY/DEXA (09/13/2020 10:43 AM CDT) Anatomical Region Laterality Modality Bone Bone Density 09/13/2020 11:1 0 AM CDT Narrative 09/13/2020 11:12 AM CDT IMAGING STUDIES: BONE DENSITY/DEXA DATE: 09/13/2020 10:16 AM CLINICAL HISTORY: Postmenopausal. No calcium replacement therapy. 75-year-old female with menopause at age 52. FINDINGS: LUMBAR SPINE L2-L4: BMD: 1.208 g/sq cm T-SCORE: 1.2 WHO CLASSIFICATION: Normal young adult range FRACTURE RISK: Negligible LEFT FEMORAL NECK: BMD: 0.718 T-SCORE: -1.2 WHO CLASSIFICATION: Mild osteopenia FRACTURE RISK: Very low COMPARISON STUDY: 10/09/2017. LUMBAR SPINE L2-L4: BMD: 1.147 T-SCORE: 0.6 WHO CLASSIFICATION: Normal young adult range FRACTURE RISK: Very low LEFT FEMORAL NECK: BMD: 0.751 T-SCORE: -0.9 WHO CLASSIFICATION: Normal young adult range FRACTURE RISK: Very low Recommendation. Possible instigation of calcium replacement therapy with repeat imaging in 2 years Referred By: MERY SINGER Interpreted By: Simón Valenzuela, 09/13/2020 11:10 AM Procedure Note Chucho Valenzuela MD - 09/13/2020 IMAGING STUDIES: BONE DENSITY/DEXA DATE: 09/13/2020 10:16 AM CLINICAL HISTORY: Postmenopausal. No calcium replacement therapy. 75-year-old female with menopause at age 52. FINDINGS: LUMBAR SPINE L2-L4: BMD: 1.208 g/sq cm T-SCORE: 1.2 WHO CLASSIFICATION: Normal young adult range FRACTURE RISK: Negligible LEFT FEMORAL NECK: BMD: 0.718 T-SCORE: -1.2 WHO CLASSIFICATION: Mild osteopenia FRACTURE RISK: Very low COMPARISON STUDY: 10/09/2017. LUMBAR SPINE L2-L4: BMD: 1.147 T-SCORE: 0.6 WHO CLASSIFICATION: Normal young adult range FRACTURE RISK: Very low LEFT FEMORAL NECK: BMD: 0.751 T-SCORE: -0.9 WHO CLASSIFICATION: Normal young adult range FRACTURE RISK: Very low Recommendation. Possible instigation of calcium replacement therapy with repeat imaging in 2 years Referred By: MERY SINGER Interpreted By: Simón Valenzuela, 09/13/2020 11:10 AM Mery Singer MD DEXA Final Result from Last 3 Months or Most Recently Relevant to Health Maintenance Insurance MEDICARE [facility] Care Teams Lead Java Software Engineer Relationship Specialty Start Date End Date Mery Singer MD PCP - General FAMILY PRACTICE 05/08/19
--- OUTSIDE RECORDS SUMMARY | 2024-07-23 11:44 | XMS_ITS | Clinical Summary ---
Author Organization [facility] Address [address] [place] [address] Phone Care Team Providers Care Tempering Kiln Tender Name Role Phone Dandy Page MD Primary Care Provider [phone] Harjinder Jiang DO Unavailable [phone] Allergies No known active allergies Medications polyethylene glycol (MIRALAX) Powder Use entire 255g bottle with 64oz of clear liquid as directed for colonoscopy prep. 255 g 0 6 Active omeprazole (PRILOSEC) 20 MG CAPSULE DELAYED RELEASE Take 1 Cap by mouth daily. 11 6 Active lisinopril (PRINIVIL, ZESTRIL) 10 MG Tablet Take 1 Tab by mouth daily. 99 6 Active latanoprost (XALATAN) 0.005 % Solution Place 1 Drop in affected eye(s) nightly. 6 6 Active Aspirin 81 MG Tablet Take 81 mg by mouth daily. Active Ascorbic Acid (VITAMIN C PO) Take 1 Tab by mouth daily. Active [place]-3 Fatty Acids (FISH OIL PO) Take 1 Cap by mouth daily. Active Multiple Vitamins-Minera ls (CENTRUM PO) Take 1 Tab by mouth daily. Active Immunizations Immunization Administration Dates Next Due Covid-19, Mrna, Lnp-s, Pf, 30 Mcg/0.3 Ml Dose (Santosh doherty) 07/27/2020,07/01/2020 Family History Medical History Relation Name Comments Congestive Heart Failure Father Relation Name Status Comments Father Mother Social History Tobacco Use Types Packs/Day Years Used Date Smoking Tobacco: Former Cigarettes 0.1 30 0 05/07/1968 - 05/07/1998 Smokeless Tobacco: Never Alcohol Use Standard Drinks/Week Comments No 0 (1 standard drink = 0.6 oz pur e alcohol) Comments Unknown Sex and Gender Information Value Date Recorded Sex Assigned at Not on file Legal Sex Female 10:14 PM CDT Gender Identity Not on file Sexual Orientation Not on file Plan of Treatment Health Maintenance Due Date Last Done Comments DEXA Bone Density 1945 Hepatitis C Virus (HCV) Screening 1945 TdaP Immunization 1945 Zoster Immunization (1 of 2) 1995 Respiratory Syncytial Virus (RSV) Immunization (Adult) (1 - 1-dose 75+ series) 2020 Influenza Immunization (#1) 01/06/202403/07, 03/14/2018 SARS-COV-2 Immunization ( season) 2024 03/15/2021, 07/27/2020, 07/01/2020 DTaP/Tdap/Td Immunization Discontinued 06/11/2008 Colonoscopy High Risk Discontinued 05/11/2016 Colonoscopy Discontinued 05/11/2016 Colorectal Cancer Screening Discontinued Pneumococcal Immunization (5 0+ years) Completed 03/25/2019, 09/22/2010 Pneumococcal Immunization Combined Discontinued 03/25/2019, 09/22/2010 Cologuard Discontinued Hepatitis B Immunization Aged Out No longer eligible based on patient's age to complete this topic Immunochemical Fecal Occult Blood Discontinued Meningococcal Immunization (ACWY) Aged Out No longer eligible based on patient's age to complete this topic Rotavirus Immunization Aged Out No lo nger eligible based on patient's age to complete this topic Procedures Procedure Name Priority Date/Time Associated Diagnosis Comments COLONOSCOPY Routine 05/11/2016 from Last 3 Months or Most Recently Relevant to Health Maintenance Results * COLONOSCOPY (05/11/2016) Dandy Page MD PROCEDURE/MINOR SURGICAL SOFIE SIDHU Final Result from Last 3 Months or Most Recently Relevant to Health Maintenance Insurance MEDICARE [facility] Care Teams Tempering Kiln Tender Relationship Specialty Start Date End Date Dandy Page MD [address] [place] [address] PCP - General Family Medicine 02/25/16 Harjinder Jiang DO [address] [place] [address] Gastroenterology 05/17/16
[2024-07-23 13:19] LABS: Basophils Percent Auto 0.5 % (0.2-1.2); Eosinophils Absolute Auto 0.1 K/mm3 (0-0.3); Eosinophils Percent Auto 1.4 % (0-4.4); Hematocrit 44.2 % (37.0-47.0); Hemoglobin 14.4 g/dL (12.0-15.0); Immature Granulocyte Absolute 0.01 K/mm3 (0.00-0.031); Immature Granulocyte Percent A 0.2 % (0-0.5); Lymphocytes Percent Auto 34.6 % (18.3-44.2); Mean Corpuscular HGB Conc 32.6 g/dl (32-36); Mean Corpuscular Hemoglobin 31.6 pg (26-34); Mean Corpuscular Volume 97.1 fl (80-100); Mean Platelet Volume 11.6 fl (7.4-10.4); Monocytes Absolute Auto 0.6 K/mm3 (0.1-0.6); Neutrophils Absolute Auto 3.6 K/mm3 (1.3-6.7); Neutrophils Percent Auto 54.3 % (45.5-73.1); Platelet Count Result 182 k/mm3 (150-375); Red Blood Count 4.55 M/mm3 (4.2-5.4); Red Cell Distribution Width 12.8 % (11.5-14.5); White Blood Count 6.6 K/mm3 (4.5-10.0)
[2024-07-23 13:59] LABS: Hemoglobin A1C 5.1 % (<5.7)
[2024-07-23 14:32] LABS: Free T3 3.35 pg/mL (2.45-5.93); Free T4 Free Thyroxine 1.26 ng/dL (0.78-2.19); Vitamin D 25 Hydroxy 53.8 ng/mL
[2024-07-23 16:23] LABS: Alanine Aminotransferase 27 U/L (6-35); Albumin Level 4.2 g/dL (3.5-5.1); Alkaline Phosphatase 86 U/L (38-126); Anion Gap 6 mmol/L (4-12); Aspartate Amino Transferase 46 U/L (14-36); Bilirubin,Total 0.6 mg/dL (0.2-1.3); Blood Urea Nitrogen 17 mg/dL (7-17); Calcium 9.6 mg/dL (8.4-10.2); Carbon Dioxide 30 mmol/L (22-30); Chloride 103 mmol/L (98-107); Cholesterol 175 mg/dL (0-200); Estimated Glomerular Filt Rate > 60; Glucose 91 mg/dL (65-110); HDL Direct 43 mg/dL; Potassium 4.6 mmol/L (3.4-5.0); Sodium 139 mmol/L (137-145); Triglycerides 82 mg/dL (<150)
[2024-07-23 16:34] LABS: LDL Cholesterol Direct 103 mg/dL
[2024-07-23 16:53] LABS: Thyroid Stimulating Hormone 0.521 uIU/mL (0.465-4.680)
== END 2024-07-23 10:19 | disposition home or self-care (01) ==
PROVIDERS: PCP Family Medicine; Visit Provider Family Medicine
DX: E78.5 Hyperlipidemia, unspecified (principal); I10 Essential (primary) hypertension; E07.9 Disorder of thyroid, unspecified; R73.9 Hyperglycemia, unspecified; E05.90 Thyrotoxicosis, unspecified without thyrotoxic crisis or storm; E53.8 Deficiency of other specified B group vitamins; E55.9 Vitamin D deficiency, unspecified
CPT/HCPCS: 36415; 80053; 80061; 82306; 82607; 83036; 84439; 84443; 84481; 85025

== ENCOUNTER 2024-10-06 15:16 | Outpatient (CLI) | payer MEDICARE, SELFPAY ==
--- NOTE | ~2024-10-06 | XR_ITS ---
XR chest 2V 10/06/2024 16:14 Indication: Acute cough Procedure: 2 view chest Comparison: 05/30/2008 Findings: Heart size normal. Calcified granulomas left lower lobe. No focal air space disease, pulmon ninfa edema, pleural effusion or suspected pneumothorax. 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 Prominent bridging osteophytes of the lower thoracic spine anterior ly. Impression: 1: No acute cardiopulmonary disease. Reviewed, dictated and finalized at location A. Impression: 1: No acute cardiopulmonary disease.
--- NOTE | ~2024-10-06 | MM_ITS ---
PROCEDURE: MM SCREENING [facility] JUAN CARLOS INDICATION: Asymptomatic, referred for screening mammogram COMPARISON: 08/10/2023 TECHNIQUE: Full field digital CC, MLO views of Both breasts were obtained with computer-aided detect ion to assist in interpretation of the study. FINDINGS: The breasts are almost entirely fatty. There is a focal asymmetry in the outer central right breast centered at 2.3 cm posterior to the nipp le. No other focal dominant mass, architectural distortion, or suspicious microcalcifications are vic ntified. Elsewhere, there are no mammographic features of malignancy. IMPRESSION: 1. Right breast Focal asymmetry. 2. No evidence of malignancy in the Left breast. RECOMMENDATION: Right breast Diagnostic mammogram with true lateral, appropriate spot compression views and an ultras ound if needed. BI-RADS 0, INCOMPLETE, NEEDS ADDITIONAL IMAGING EVALUATION Reviewed, dictated and finalized at location B. IMPRESSION: 1. Right breast Focal asymmetry. 2. No evidence of malignancy in the Left breast. RECOMMENDATION: Right breast Diagnostic mammogram with true lateral, appropriate spot compressi on views and an ultrasound if needed. BI-RADS 0, INCOMPLETE, NEEDS ADDITIONAL IMAGING EVALUATION
--- OUTSIDE RECORDS SUMMARY | 2024-10-06 15:28 | XMS_ITS | Clinical Summary ---
Author Organization [facility] Address [address] [address] Care Team Providers Care Sales And Service Associate Name Role Phone Deng Boone MD Unavailable [phone] Mery Singer MD Primary Care Provider Source Comments [facility],non-owned Affiliates and Associated Physician Practices is amultiple site organization consisting of ambulatory clinics and hospital sitesin [place], [place], [place] and [place]. This disclosure is being madepursuant to the Care Everywhere program and may not contain all information available regarding this patient. Last updated 18.[facility] Allergies No known active allergies Medications * Be aware that medications may not be up to date on this document. Alwaysverify current medications with the patient. omeprazole (PRILOSEC) 20 MG capsule Take 1 capsule by mouth once daily 04/07/2019 Active lisinopril (PRINIVIL; ZESTRIL) 10 MG tablet Take 1 tablet by mouth once daily 04/22/2016 Active [place]-3 Fatty Acids (FISH OIL) 1200 MG Take [...] BEDTIME. 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 Gender Identity Not on file Sexual Orientation [...] 9:06 AM CDT Height 157.5 cm (5' 2) 01/21/2020 9:06 AM CDT Body Mass Index 39.65 01/21/2020 9:06 AM CDT Plan of Treatment Health Maintenance Due Date Last Done Comments MEDICARE AWV 12 MONTHS 1945 DTAP/TDAP/TD VACCINES (1 - Tdap) 1964 PNEUMOCOCCAL VACCINE 50+ (1 of 1 - PCV) 1995 ZOSTER VACCINE (1 of 2) 1995 Respiratory Syncytial Virus (RSV) Vaccine Pt: or over 60 yrs (1 - 1-dose 75+ series) 2020 COVID-19 VACCINE (3 - 2023-2 5 season) 2024 07/27/2020, 07/01/2020 DEPRESSION SCREENING 05/07/2024 INFLUENZA VACCINE (Season Ended) 2025 BONE DENSITY TESTING Completed 09/13/2020 HEPATITIS B [...] this topic Medical Devices Implanted Type Area Steno Typist Device Identifier Shelf Expiration Date Model / Serial / Lot Cmnt Bone Djo Srg Cblt 40gm Hvisc Strl Implanted:Qty: 1 on 01/21/2020 by Deng Boone MD at [facility] Right: Knee [employer] 01/28/2021 600-15-000 / / [id number] Tray Tib 71mm Kn Cocr I Beam Implanted:Qty: 1 on 01/21/2020 by Deng Boone MD at [facility] Right: Knee [employer] 11/07/2029 [id number] / / [id number] Cmpnt Fem Kn Rt Cr Cmnt Prm Vngrd Intlk Implanted:Qty: 1 on 01/21/2020 by Deng Boone MD at [facility] Right: Knee [employer] 11/10/2029 [id number] / / [id number] Cmpnt Ptlr 28mm 1 Pg Wire Ascnt Arcm Kn Implanted:Qty: 1 on 01/21/2020 by Deng Boone MD at [facility] Right: Knee [employer] 09/21/2024 [id number] / / [id number] Brng [id number] Vngrd Arcm Kn Ant Stab Implanted:Qty: 1 on 01/21/2020 by Deng Boone MD at [facility] Right: Knee [employer] 11/18/2024 [id number] / / [id number] Insurance [facility] Address: [facility] [address] [place] [address] MEDICARE Advance Directives Documents on File Type Date Recorded Patient Surgical Asst Expl anation Adv Directive/Living Will/POA 01/23/2020 6:03 PM * Full Code (Latest Code Status on File) Date Activated Date Inactivated Comments 01/21/2020 1:28 PM 01/22/2020 1:56 PM Care Teams Sales And Service Associate Relationship Specialty Start Date End Date Mery Singer MD [address] [place] [address] PCP - General Family Medicine 07/08/19 [place] [id number] [address] [place] [id number] Orthopedic Surgery 07/08/19
--- OUTSIDE RECORDS SUMMARY | 2024-10-06 15:28 | XMS_ITS | Clinical Summary ---
Author Organization [facility] Address [address] [place] [address] Phone Care Team Providers Care Director Medical Affairs Name Role Phone Dandy Page MD Primary Care Provider [phone] Harjinder Jiang DO Unavailable [phone] Allergies No known active allergies Medications polyethylene [...] Take 1 Tab by mouth daily. Active [place]-3 Fatty Acids (FISH OIL PO) Take 1 Cap by mouth daily. Active Multiple Vitamins-Minera ls (CENTRUM PO) Take 1 Tab by mouth daily. Active Immunizations Immunization Administration Dates Next Due Covid-19, Mrna, Lnp-s, Pf, 30 Mcg/0.3 Ml Dose (P fizer) 07/27/2020,07/01/2020 Family History Medical History Relation Name [...] COLONOSCOPY (05/11/2016) Dandy Page MD PROCEDURE/MINOR SURGICAL ORDLuis SIDHU Final Result from Last 3 Months or Most Recently Relevant to Health Maintenance Insurance MEDICARE [facility] Care Teams Director Medical Affairs Relationship Specialty Start Date End Date Dandy Page MD [address] [place] [address] PCP - General Family Medicine 02/25/16 Harjinder Jiang DO [address] [place] [address] Gastroenterology 05/17/16
== END 2024-10-06 15:17 | disposition home or self-care (01) ==
PROVIDERS: PCP Family Medicine; Visit Provider Family Medicine
DX: Z12.31 Encounter for screening mammogram for malignant neoplasm of breast (principal); R05.1 Acute cough; R92.8 Other abnormal and inconclusive findings on diagnostic imaging of breast
CPT/HCPCS: 71046; 77063; 77067

== ENCOUNTER 2024-10-28 12:45 | Outpatient (CLI) | payer MEDICARE, SELFPAY ==
--- NOTE | ~2024-10-28 | MMUS_ITS ---
EXAMINATION: MM diagnostic sheela RT w minerva, US breast RT limited HISTORY: Subareolar right breast mass TECHNIQUE: Additional 3-D tomosynthesis images of the right breast were performed and synthetic 2-D i mages were generated. CAD analysis was submitted and interpreted. High resolution limited right breas t ultrasound was performed. COMPARISON: 10/06/2024 BREAST PARENCHYMAL COMPOSITION:Not Dense. The breasts are almost entirely fatty FINDINGS: MAMMOGRAPHIC FINDINGS: Spot compression views demonstrate persistent ovoid mass in the subareolar breast measuring 10 mm in diameter. Possible additional adjacent 6 mm circumscribed ovoid mass. ULTRASOUND: There is a focally dilated duct at the right breast subareolar region 9:00 position without evidence of intraductal mass. IMPRESSION: 10 mm ovoid mass in the right subareolar breast with focally dilated duct O'clock position sonographically. No overtly suspicious mass seen. No intraductal mass seen. Six-cassia h follow-up mammography/sonography of the right breast recommended to reassess. BI-RADS category 3, probably benign findings. Reviewed, dictated and finalized at location . IMPRESSION: 10 mm ovoid mass in the right subareolar breast with focally dilated duct O'clock position sonographically. No overtly suspicious mass seen. No intraduct al mass seen. Six-month follow-up mammography/sonography of the right breast re commended to reassess. BI-RADS category 3, probably benign findings.
== END 2024-10-28 12:46 | disposition home or self-care (01) ==
PROVIDERS: PCP Family Medicine; Visit Provider Family Medicine
DX: R92.8 Other abnormal and inconclusive findings on diagnostic imaging of breast (principal); N63.15 Unspecified lump in the right breast, overlapping quadrants
CPT/HCPCS: 76642; 77061; 77065; G0279

== ENCOUNTER 2025-01-28 12:46 | Outpatient (CLI) | payer MEDICARE, SELFPAY ==
--- OUTSIDE RECORDS SUMMARY | 2025-01-28 12:50 | XMS_ITS | Clinical Summary ---
Author Organization [facility] Address [address] [place] [address] Care Team Providers Care Account Service Representative Name Role Phone Deng Boone MD Unavailable [phone] Mery Singer MD Primary Care Provider Source Comments [facility],non-owned Affiliates and Associated Physician Practices is amultiple site organization consisting of ambulatory clinics and hospital sitesin [place], [place], [place] and [place]. This disclosure is being madepursuant to the Care Everywhere program and may not contain all information available regarding this patient. Last updated 18.[facility] Allergies No known active allergies Medications * Be aware that medications may not be up to date on this document. Alwaysverify current medications with the patient. 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 Gender Identity Not on file Sexual Orientation [...] yrs (1 - 1-dose 75+ series) 2020 DEPRESSION SCREENING 05/07/2024 COVID-19 VACCINE (3 - 2024-2 6 season) 2025 07/27/2020, 07/01/2020 INFLUENZA VACCINE (#1) 2025 BONE DENSITY TESTING Completed 09/13/2020 HEPATITIS [...] this topic Medical Devices Implanted Type Area Nuclear Cardiology Technologist Device Identifier Shelf Expiration Date Model / Serial / Lot Cmnt Bone Djo Srg Cblt 40gm Hvisc Strl Implanted:Qty: 1 on 01/21/2020 by Deng Boone MD at [facility] Right: Knee [employer] 01/28/2021 600-15-000 / / [id number] Tray Tib 71mm Kn Cocr I Beam Implanted:Qty: 1 on 01/21/2020 by Deng Boone MD at [facility] Right: Knee [employer] 11/07/2029 [id number] / / [id number] Cmpnt Fem Kn Rt Cr Cmnt Prm Vngrd Intlk Implanted:Qty: 1 on 01/21/2020 by Deng Boone MD at [facility] Right: Knee [employer] 11/10/2029 [id number] / / [id number] Cmpnt Ptlr 28mm 1 Pg Wire Ascnt Arcm Kn Implanted:Qty: 1 on 01/21/2020 by Deng Boone MD at [facility] Right: Knee [employer] 09/21/2024 [id number] / / [id number] [id number] 37vqu60tz Vngrd Arcm Kn Ant Stab Implanted:Qty: 1 on 01/21/2020 by Deng Boone MD at [facility] Right: Knee [employer] 11/18/2024 [id number] / / [id number] Insurance [employer] MEDICARE Advance Directives Documents on File Type Date Recorded 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
--- OUTSIDE RECORDS SUMMARY | 2025-01-28 12:50 | XMS_ITS | Clinical Summary ---
Author Organization [facility] Address [facility] [address] [place] [address] Care Team Providers Care Roundsman Name Role Phone Mery Singer MD Primary Care Provider Allergies No known active allergies Medications omeprazole (PRILOSEC) 20 MG capsule Take 1 capsule (20 mg total) by mouth daily. 5 Active meloxicam (MOBIC) 15 MG tablet Take 1 tablet (15 mg total) by mouth daily. 5 Active lisinopril (PRINIVIL) 10 MG tablet Take 1 tablet (10 mg total) by mouth daily. 5 Active latanoprost (XALATAN) 0.005 % ophthalmic solution ADMINISTER 1 DROP INTO BOTH EYES ONCE A DAY AT BEDTIME. 5 Active cyclobenzaprine (FLEXERIL) 10 MG tablet Take 1 tablet (10 mg total) by mouth 3 (three) times daily as needed. 5 Active Ascorbic Acid 250 MG Chew Tab Chew by mouth daily. Active amLODIPine (NORVASC) 5 MG tablet Take 1 tablet (5 mg total) by mouth daily. 5 Active Active Problems Problem Noted Date Diagnosed Date Posterior tibial tendinitis of left leg 09/07/19 23 Primary osteoarthritis of right knee 07/08/2019 Resolved Problems Problem Noted Date Diagnosed Date Resolved Date Preop examination 01/06/2020 09/22/2024 Immunizations Immunization Administration Dates Next Due Influenza Adult (Generic) 03/19/2019 Pneumococcal (Pneumovax 23) 09/22/2010 Pneumococcal (Prevnar 13) 03/25/2019 Td (Tenivac) preservative free 06/11/2008 Social History Tobacco Use Types Packs/Day Years Used Date Smoking Tobacco: Former Cigarettes Smokeless Tobacco: Never Tobacco Cessation:Counseling Given: Yes Alcohol Use Standard Drinks/Week Comments Not Currently 0 (1 standard drink = 0.6 oz pur e alcohol) PHQ-2 Answer Date Recorded Patient Health Questionnaire-2 Score 0 09/19/2024 Comments No Sex and Gender Information Value Date Recorded Sex Assigned at Not on file Legal Sex Female 7:06 PM CDT Gender Identity Not on file Sexual Orientation Not on file Last Filed Vital Signs Vital Sign Reading Time Taken Comments Blood Pressure 130/84 09/19/2024 9:27 AM CDT Pulse 101 09/19/2024 9:27 AM CDT Temperature 36.7 C (98.1 F) 09/19/2024 9:27 AM CDT Respiratory Rate 18 09/19/2024 9:27 AM CDT Oxygen Saturation 94% 09/19/2024 9:27 AM CDT Inhaled Oxygen Concentration - - Weight 107.5 kg (237 lb) 09/19/2024 9:27 AM CDT Height 152.4 cm (5') 09/19/2024 9:27 AM CDT Body Mass Index 46.29 09/19/2024 9:27 AM CDT Plan of Treatment Health Maintenance Due Date Last Done Comments Hepatitis C 1963 Zoster Vaccines (1 of 2) 1995 DTaP, Tdap and Td Vaccines ( 1 - Tdap) 06/12/2008 06/11/2008 Annual Medicare Wellness Visit 2010 RSV Immunization or 60+ Years (1 - 1-dose 75+ series) 2020 COVID-19 Vaccine (3 - 2024-2 6 season) 2025 07/27/2020, 07/01/2020 Pneumococcal Vaccine: 50+ Years Completed 03/25/2019, 09/22/2010 Dexa Scan (General) Completed 09/13/2020 PHQ-2 (Physician [place]) Completed 09/19/2024 Meningococcal B Vaccine Aged Out No l [...] Most Recently Relevant to Health Maintenance Insurance [facility] Care Teams Roundsman Relationship Specialty Start Date End Date Mery Singer MD PCP - General FAMILY PRACTICE 05/08/19
--- OUTSIDE RECORDS SUMMARY | 2025-01-28 12:50 | XMS_ITS | Clinical Summary ---
Author Organization [facility] Address [address] [place] [address] Phone Care Team Providers Care Nutritional Yeast Supervisor Name Role Phone Dandy Page MD Primary Care Provider [phone] Harjinder Jiang DO Unavailable [phone] Allergies No known active allergies Medications [...] Take 1 Tab by mouth daily. Active [place]-3 Fatty Acids (FISH OIL PO) Take 1 [...] Due Date Last Done Comments Hepatitis C Virus (HCV) Screening 1945 TdaP Immunization 1945 Zoster Immunization (1 of 2) 1995 Respiratory Syncytial Virus (RSV) Immunization (Adult) (1 - 1-dose 75+ series) 2020 SARS-COV-2 Immunization ( season) 2024 03/15/2021, 07/27/2020, 07/01/2020 Influenza Immunization (#1) 01/05/202503/07, 03/14/2018 DTaP/Tdap/Td Immunization Discontinued 06/11/2008 Colonoscopy Discontinued 05/11/2016 Colorectal Cancer Screening Discontinued Pneumococcal Immunization (5 0+ years) Completed 03/25/2019, 09/22/2010 Pneumococcal Immunization Combined Discontinued 03/25/2019, 09/22/2010 Cologuard Discontinued Hepatitis B Immunization Aged Out No longer eligible based on patient's age to complete this topic Human Papillomavirus (HPV) Immunization Aged Out No longer eligible based [...] Recently Relevant to Health Maintenance Insurance MEDICARE [facility] Care Teams Nutritional Yeast Supervisor Relationship Specialty Start Date End Date Dandy Page MD [address] [place] [address] PCP - General Family Medicine 02/25/16 Harjinder Jiang DO [address] [place] [address] Gastroenterology 05/17/16
[2025-01-28 19:05] LABS: Alanine Aminotransferase 24 U/L (6-35); Albumin Level 4.2 g/dL (3.5-5.1); Alkaline Phosphatase 81 U/L (38-126); Anion Gap 6 mmol/L (4-12); Aspartate Amino Transferase 38 U/L (14-36); Bilirubin,Total 0.7 mg/dL (0.2-1.3); Blood Urea Nitrogen 16 mg/dL (7-17); Calcium 9.5 mg/dL (8.4-10.2); Carbon Dioxide 29 mmol/L (22-30); Chloride 101 mmol/L (98-107); Estimated Glomerular Filt Rate > 60; Glucose 126 mg/dL (65-110); Potassium 4.4 mmol/L (3.4-5.0); Sodium 136 mmol/L (137-145); Total Protein 7.3 g/dL (6.3-8.2)
[2025-01-28 19:28] LABS: Thyroid Stimulating Hormone Reflex 0.528 uIU/mL (0.465-4.68)
== END 2025-01-28 12:47 | disposition home or self-care (01) ==
LOC: ANHGOSHLAB 12:46
PROVIDERS: PCP Family Medicine; Visit Provider Family Medicine
DX: E05.90 Thyrotoxicosis, unspecified without thyrotoxic crisis or storm (principal); I10 Essential (primary) hypertension
CPT/HCPCS: 36415; 80053; 84443

== ENCOUNTER 2025-04-13 10:49 | Outpatient (CLI) | payer MEDICARE, SELFPAY ==
--- NOTE | ~2025-04-13 | XR_ITS ---
XR lumbar spine min 4V Indication: Low back pain x 1 year, no inj, no surg Comparison: None Findings: Moderate loss of vertebral height throughout. No acute fracture or subluxation. Moderate to severe loss of disc height throughout. Soft tissues unremarkable Impression: No acute abnormality. Reviewed, dictated and finalized at location P. O LAB MANAGER Impression: No acute abnormality.
--- NOTE | ~2025-04-13 | XR_ITS ---
EXAMINATION: XR hip BI 2V w AP pelvis, 04/13/2025 11:00 MRI TECHNICIAN HISTORY: Low back pain x 1 year, no surg, no inj COMPARISON: No comparisons available. Findings: No acute fracture or malalignment. No significant degenerative changes. Soft tissues unremarkable. Impression: No acute fracture or malalignment. Reviewed, dictated and finalized at location P. TECHNICIAN Impression: No acute fracture or malalignment.
== END 2025-04-13 10:50 | disposition home or self-care (01) ==
LOC: GOSHIMG 10:51
PROVIDERS: PCP Family Medicine; Visit Provider Nurse Practitioner Family
DX: M54.50 Low back pain, unspecified (principal); M79.605 Pain in left leg; M25.552 Pain in left hip
CPT/HCPCS: 72110; 73521

== ENCOUNTER 2025-04-28 10:32 | Outpatient (CLI) | payer MEDICARE, SELFPAY ==
--- OUTSIDE RECORDS SUMMARY | 2025-04-27 09:19 | XMS_ITS | Encounter Summary ---
Author Organization [facility] Address [address] [place] [address] Care Team Providers Care Territory Development Manager Name Role Phone Mery Singer MD Primary Care Provider Reason for Visit * Reason Comments Back Pain And leg and hip pain * Physical Therapy (Routine) - Authorized Specialty Diagnoses / Procedures Referred By Hallie t Referred To Contact PHYSICAL THERAPY / [facility] Physical Therapy Diagnoses Low back pain, pain left and right hip Procedures Natalie Eagle, NIMISHA [address] [place] [address] Phone: tel: fax: [facility] [address] [place] [address] Phone: tel: fax: Referral ID Status Reason Start Date Expiration Date Visits Requested Visits Authorized [id number] Authorized Physical Therapy 5 99 [phone] Encounter Details Date Type Department Care Team (Latest Contact Info) Description 04/27/2025 9:19 AM [facility] Hospital Encounter [facility] [address] [place] [address] Natalie Beaulieu NP [address] [place] [address] Tiana Dixon PTA Back Pain (And leg and hip pain) Social History Tobacco Use Types Packs/Day Years Used Date Smoking Tobacco: Former Cigarettes Smokeless Tobacco: Never Alcohol Use Standard Drinks/Week Comments Not Currently 0 (1 standard drink = 0.6 oz pur e alcohol) PHQ-2 Answer Date Recorded Patient Health Questionnaire-2 Score 0 09/19/2024 Comments No Sex and Gender Information Value Date Recorded Sex Assigned at Not on file Legal Sex Female 7:06 PM CDT Gender Identity Not on file Sexual Orientation Not on file documented as of this encounter Progress Notes * Tiana Dixon, GEAR SHAPER SET UP OPERATOR - 04/27/2025 9:45 AM CST Physical Therapy Visit Note: Patient Name: Sol Crespo Diagnosis: Low back pain (primary encounter diagnosis) Pain in left leg Pain in left hip SUBJECTIVE Therapy Visit Start Time: 944 Stop Time: 1024 Time Calculation (min): 39 min Treatment Day: 2 Total Approved Visits: ins unlimited / PT POC up to 16 Therapy Plan of Care: 2x week for up to 16 visits Current Therapy Orders: eval and rx Diagnosis: LBP, pain in L hip, pain in L leg Referring Provider: Natalie Beaulieu NP Subjective Note: My left hip is killing me this morning. I can tell a little difference since last week. I can't do the exercise from my HEP where I bring my knees to my chest because it hurts. Response to prior treatment: felt pretty good Compliance to Home Program: reports compliance Reported Falls since last visit: no Medications changes since last visit : no Pain Current Location of Pain: L LBP/hip pain Current Pain Level: 810 OBJECTIVE Treatment provided today: Therapeutic Exercise - 77003 Number of Minutes - 92857: 39 Standing (Reps/Sets): * flexion based ex * Cardio Equipment: nustep S9, L3 x5' during subjective collection Exercise: repeated sitting flex x 10 with 5-10 second hold (HEP) Exercise: DKTC stretch x 10 with 5 second hold (HEP) Exercise: LTR stretch x 10 B with 5 second hold (HEP) Exercise: SB KTC stretch with overpressure x 10 Exercise: SB LTR with overpressure x 10 b Exercise: B LE distraction in supine with SBx 10 Exercise: future - 3 way kicks Exercise: quantum trunk flex 30# and iso trunk ext x10 ea Exercise: future - sitting or standing perturbations for core strengthening Exercise: iso ab pushing into SB x10 with 5 sec hold Exercise: hooklying pelvic tilts x10 with 5 sec hold Exercise: hooklying alt hip flex x10 Exercise: bridging x10 (small ROM) Exercise: slantboard L4 x1' Education Was Education Provided: Yes Topic: ex technique Recipient: Patient Method: Demonstration, Verbal, Written, Return Demonstration Response: Asked questions, Demonstrates adequately, Verbalized understanding Barriers: None ASSESSMENT Assessment Note: Initiated above activities as outlined and reviewed HEP. Sol was able to tolerate all activities today without significant difficulty. Favors lumbar flexion and forward flexed posture in sitting/standing. Tends to endorse slight relief following repetitive lumbar flex. Challenged with bridging due to LE weakness and only able to perform within small ROM. Response to Treatment : Feels pretty good Continue on Functional Deficit of: LBP, hip pain and pain L post thigh limiting functional mobility PLAN Plan Next Visit Plan: Continue PT with focus on lumbar flexion based ex and progression of HEP, MTT and modalities as needed Total Time Total Time in Minutes: 39 Timed Code Treatment Minutes : 39 M CLINICIAN documented in this encounter Plan of Treatment Upcoming Encounters Date Type Department Care Team (Late st Contact Info) Description 05/05/2025 3:00 PM CLAIM CLINICIAN Appointment [facility] [address] [place] [address] Natalie Beaulieu, NIMISHA [address] [place] [address] [place] [address] [place] [address] 05/08/2025 11:00 AM CLAIM CLINICIAN Appointment [facility] [address] [place] [address] Natalie Beaulieu NP [address] [place] [address] Mi Sanchez PTA 05/12/2025 11:15 AM CLAIM CLINICIAN Appointment [facility] [address] [place] [address] Natalie Beaulieu NP [address] [place] [address] [place] [address] [place] [address] 05/15/2025 9:00 AM CLAIM CLINICIAN Appointment [facility] [address] [place] [address] Natalie Beaulieu, SHOES HAND SEWER [facility] [place] [address] Tiana Dixon, GEAR SHAPER SET UP OPERATOR 05/18/2025 11:15 AM CLAIM CLINICIAN Appointment [facility] [address] [place] [address] Natalie Beaulieu, SHOES HAND SEWER [address] [place] [address] [place] [address] [place] [address] 05/22/2025 10:00 AM CLAIM CLINICIAN Appointment [facility] [address] [place] [address] Natalie Beaulieu, SHOES HAND SEWER [facility] [place] [address] Tiana Dixon, GEAR SHAPER SET UP OPERATOR 05/26/2025 9:15 AM CLAIM CLINICIAN Appointment [facility] [address] [place] [address] Natalie Beaulieu, SHOES HAND SEWER [facility] [place] [address] Tiana Dixon, GEAR SHAPER SET UP OPERATOR 05/29/2025 9:15 AM CLAIM CLINICIAN Appointment [facility] [address] [place] [address] Nikki Bradley, DPT [address] [place] [address] Natalie Beaulieu, NIMISHA [address] [place] [address] 06/02/2025 10:30 AM CLAIM CLINICIAN Appointment [facility] [address] [place] [address] Nikki Bradley, DPT [address] [place] [address] Tiana Dixon PTA 06/05/2025 10:30 AM CLAIM CLINICIAN Appointment [facility] [address] [place] [address] Nikki Bradley, DPT [address] [place], [place] [id number] Tiana Dixon PTA documented as of this encounter Visit Diagnoses Diagnosis Low back pain- Primary Lumbago Pain in left leg Pain in left hip Pain in joint, pelvic region and thigh documented in this encounter Care Teams Territory Development Manager Relationship Specialty Start Date End Date Mery Singer MD PCP - General FAMILY PRACTICE 05/08/19 documented as of this encounter
--- NOTE | ~2025-04-28 | MMUS_ITS ---
EXAMINATION: MM diagnostic sheela RT w minerva, US breast RT limited HISTORY: Follow-up TECHNIQUE: Craniocaudal and mediolateral oblique 3-D tomosynthesis images were obtained and synthetic 2-D images were generated. CAD analysis was submitted and interpreted. Grayscale sonography over the area(s) of interest with color Doppler if there is a finding. COMPARISON: October 28, 2024. Screening study from 2023. BREAST PARENCHYMAL COMPOSITION: Not Dense: There are scattered areas of fibroglandular tissue. MAMMOGRAM FINDINGS: An elongate, slightly bulbous, circumscribed structure in the anterior 9:00 position appears more prominent mammographically. There are no suspicious calcifications. No unexplained architectural distortion is seen. There are no skin or nipple abnormalities identified. There is no adenopathy seen on the images submitted. ULTRASOUND FINDINGS: The mixed echogenicity structure at 12:00 in the retroareolar region is unchanged. Sonography through 9:00 retroareolar region on the right demonstrates a solitary dilated duct with some bulbous components near the nipple, accounting for the mammographic finding. No other dilated ducts are seen in the left retroareolar region. Survey imaging of the left demonstrates that there are a few, less in caliber than the one on the left. IMPRESSION: 1. Probably benign structure at 12:00 is unchanged. Continued follow-up is recommended with ultrasound of this at the time of the bilateral mammogram in October. 2. Solitary dilated duct on the right, more prominent than on the prior study/study. No filling defect is seen in the duct sonographically with certainty. MR is recommended for further evaluation. BI-RADS 3 - Probably benign - short-term follow-up is recommended. Reviewed, dictated and finalized at location C. IONAL DISABILITIES TEACHER IMPRESSION: 1. Probably benign structure at 12:00 is unchanged. Continued follow-up is sarah mmended with ultrasound of this at the time of the bilateral mammogram in October. 2. Solitary dilated duct on the right, more prominent than on the prior study/s tudy. No filling defect is seen in the duct sonographically with certainty. MR is recommended for further evaluation. BI-RADS 3 - Probably benign - short-term follow-up is recommended.
--- OUTSIDE RECORDS SUMMARY | 2025-04-28 11:09 | XMS_ITS | Clinical Summary ---
Author Organization [facility] Address [address] [place] [address] Care Team Providers Care Shredded Filler Cigar Maker Machine Name Role Phone Deng Boone MD Unavailable [phone] Mery Singer MD Primary Care Provider Source Comments [facility],non-owned Affiliates and Associated Physician Practices is amultiple site organization consisting of ambulatory clinics and hospital sitesin [place], [place], [place] and [place]. This disclosure is being madepursuant to the Care Everywhere program and may not contain all information available regarding this patient. Last updated 18.[facility] Allergies No known active allergies Medications * Be aware that medications may not be up to date on this document. Alwaysverify current medications with the patient. 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 Gender Identity Not on file Sexual Orientation [...] DEPRESSION SCREENING 05/07/2024 COVID-19 VACCINE (3 - 5-2 6 season) 2025 07/27/2020, 07/01/2020 INFLUENZA VACCINE [...] this topic Medical Devices Implanted Type Area Teller Coordinator Device Identifier Shelf Expiration Date Model / Serial / Lot Cmnt Bone Djo Srg Cblt 40gm Hvisc Strl Implanted:Qty: 1 on 01/21/2020 by Deng Boone MD at [facility] Right: Knee [employer] 01/28/2021 [id number] / / [id number] Tray Tib 71mm Kn Cocr I Beam Implanted:Qty: 1 on 01/21/2020 by Deng Boone MD at [facility] Right: Knee [employer] 11/07/2029 [id number] / / [id number] Cmpnt Fem Kn Rt Cr Cmnt Prm Vngrd Intlk Implanted:Qty: 1 on 01/21/2020 by Deng Boone MD at [facility] Right: Knee [employer] 11/10/2029 [id number] / / [id number] Cmpnt Ptlr 28mm 1 Pg Wire Ascnt Arcm Kn Implanted:Qty: 1 on 01/21/2020 by Deng Boone MD at [facility] Right: Knee [employer] 09/21/2024 [id number] / / [id number] Brng 06plt32gg Vngrd Arcm Kn Ant Stab Implanted:Qty: 1 on 01/21/2020 by Deng Boone MD at [facility] Right: Knee [employer] 11/18/2024 [id number] / / [id number] Insurance ANTH MEDICARE Advance Directives Documents on File Type Date Recorded 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
--- OUTSIDE RECORDS SUMMARY | 2025-04-28 11:09 | XMS_ITS | Clinical Summary ---
Author Organization [facility] Address [address] [place] [address] Care Team Providers Care Maintenance And Operations Supervisor Name Role Phone Unavailable Primary Care Provider Unavailabl e Social History Tobacco Use Types Packs/Day Years Used Date Smoking Tobacco: Never Assessed Comments Unknown Sex and Gender Information Value Date Recorded Sex Assigned at Not on file Legal Sex Female 2:39 PM EST Gender Identity Not on file Sexual Orientation Not on file Plan of Treatment Not on file Medical Devices Not on file
--- OUTSIDE RECORDS SUMMARY | 2025-04-28 11:09 | XMS_ITS | Clinical Summary ---
Author Organization [facility] Address [address] [place] [address] Phone Care Team Providers Care Sole Layer Hand Name Role Phone Dandy Page MD Primary Care Provider [phone] Harjinder Jiang DO Unavailable [phone] Allergies No known active allergies Medications [...] Take 1 Tab by mouth daily. Active Essex-3 Fatty Acids (FISH OIL PO) Take 1 [...] 1945 Zoster Immunization (1 of 2) 1995 Medicare Initial AWV [id number] 04/06/2011 Respiratory Syncytial Virus (RSV) Immunization (Adult) (1 - 1-dose 75+ series) 2020 Influenza Immunization (#1) 01/05/202503/07, 03/14/2018 SARS-COV-2 Immunization (2024- season) 2025 03/15/2021, 07/27/2020, 07/01/2020 DTaP/Tdap/Td Immunization Discontinued 06/11/2008 Colonoscopy Discontinued 05/11/2016 Colorectal Cancer Screening Discontinued Pneumococcal Immunization (5 0+ years) Completed 03/25/2019, 09/22/2010 Pneumococcal Immunization Combined Discontinued 03/25/2019, 09/22/2010 Cologuard Discontinued Hepatitis B Immunization Aged Out No longer eligible based on patient's age to complete this topic Human Papillomavirus (HPV) Immunization (No Doses Required) Completed Immunochemical Fecal Occult Blood Discontinued Meningococcal Immunization [...] Recently Relevant to Health Maintenance Insurance MEDICARE [facility] Care Teams Sole Layer Hand Relationship Specialty Start Date End Date Dandy Paeg MD [address] [place] [address] PCP - General Family Medicine 02/25/16 Harjinder Jiang DO [address] [place] [address] Gastroenterology 05/17/16
--- OUTSIDE RECORDS SUMMARY | 2025-04-28 11:09 | XMS_ITS | Clinical Summary ---
Author Organization [facility] Address [address] [place] [address] Care Team Providers Care Wardrobe Coordinator Name Role Phone Mery Alcocer MD Primary Care Provider Allergies No known [...] Active Problems Problem Noted Date Diagnosed Date Low back pain 04/22/2025 Pain in left leg 04/22/2025 Pain in left hip 04/22/2025 Posterior tibial tendinitis of left leg 09/07/19 23 Primary osteoarthritis of right knee 07/08/2019 Resolved Problems Problem Noted Date Diagnosed Date Resolved Date Preop examination 01/06/2020 09/22/2024 Encounters Date Type Department Care Team Description 04/27/2025 9:19 AM [facility] Hospital Encounter [facility] [address] [place] [address] Natalie Beaulieu NP Gerling, Savannah L, ROMARIO Back Pain (And leg and hip pain) 04/27/2025 Travel 04/22/2025 9:06 AM SUMATRA OPENER - 04/22/2025 11:59 PM SUMATRA OPENER Hospital Encounter [facility] [address] [place] [address] Natalie Beaulieu NP Meyer, Beverly L, PT Low Back Pain Discharge Disposition: Home or Self Care (Routine Discharge) 04/22/2025 Travel from Last 3 Months Immunizations Immunization Administration Dates Next Due Influenza [...] 09/19/2024 9:27 AM CDT Plan of Treatment Upcoming Encounters Date Type Department Care Team (Late st Contact Info) Description 05/05/2025 3:00 PM SUMATRA OPENER Appointment [facility] [address] [place] [address] Natalie Beaulieu, EXPERIMENTAL DISPLAY BUILDER [address] [place] [address] [place] [address] [place] [address] 05/08/2025 11:00 AM SUMATRA OPENER Appointment [facility] [address] [place] [address] Natalie Beaulieu, EXPERIMENTAL DISPLAY BUILDER [address] [place] [address] Mi Sanchez, COMPUTER SYSTEMS AUDITOR 05/12/2025 11:15 AM SUMATRA OPENER Appointment [facility] [address] [place] [address] Natalie Beaulieu, EXPERIMENTAL DISPLAY BUILDER [address] [place] [address] [place] [address] [place] [address] 05/15/2025 9:00 AM SUMATRA OPENER Appointment [facility] [address] [place] [address] Natalie Beaulieu, EXPERIMENTAL DISPLAY BUILDER [address] [place] [address] Tiana Dixon, COMPUTER SYSTEMS AUDITOR 05/18/2025 11:15 AM SUMATRA OPENER Appointment [facility] [address] [place] [address] Natalie Beaulieu, EXPERIMENTAL DISPLAY BUILDER [address] [place] [address] [place] [address] [place] [address] 05/22/2025 10:00 AM SUMATRA OPENER Appointment [facility] [address] [place] [address] Natalie Beaulieu, EXPERIMENTAL DISPLAY BUILDER [facility] [place] [address] Tiana Dixon, COMPUTER SYSTEMS AUDITOR 05/26/2025 9:15 AM SUMATRA OPENER Appointment [facility] [address] [place] [address] Natalie Beaulieu, EXPERIMENTAL DISPLAY BUILDER [address] [place] [address] Tiana Dixon, COMPUTER SYSTEMS AUDITOR 05/29/2025 9:15 AM SUMATRA OPENER Appointment [facility] [address] [place] [address] Nikki Bradley, DPT [address] [place] [address] Natalie Beaulieu, EXPERIMENTAL DISPLAY BUILDER [address] [place] [address] 06/02/2025 10:30 AM SUMATRA OPENER Appointment [facility] [address] [place] [address] Nikki Bradley, DPT [address] [place] [address] Tiana Dixon, COMPUTER SYSTEMS AUDITOR 06/05/2025 10:30 AM SUMATRA OPENER Appointment [facility] [address] [place] [address] Nikki Bradley, DPT [address] [place] [address] Tiana Dixon, COMPUTER SYSTEMS AUDITOR Health Maintenance Due Date Last Done Comments Hepatitis C 1963 Zoster Vaccines (1 of 2) 1995 Annual Medicare Wellness Visit 2010 RSV Immunization or 60+ Years (1 - 1-dose 75+ series) 2020 COVID-19 Vaccine (4 - 2024-2 6 season) 2025 03/15/2021, 07/27/2020, 07/01/2020 Influenza Adult (#1) 2025 03/19/2019, 03/14/2018 DTaP, Tdap and Td Vaccines ( 2 - Td or Tdap) 09/20/2030 09/20/2020, 06/11/2008, 06/11/2008 Pneumococcal Vaccine: 50+ Years Completed 03/25/2019, 09/22/2010 Dexa Scan (General) Completed 09/13/2020 PHQ-2 (Physician Ute) Completed 09/19/2024 Hepatitis A Vaccines Aged Out No long er eligible based on patient's age to complete this topic Meningococcal B Vaccine Aged Out No l [...] imaging in 2 years Referred By: MERY ALCOCER Interpreted By: Simón Valenzuela, 09/13/2020 11:10 AM [...] imaging in 2 years Referred By: MERY ALCOCER Interpreted By: Simón Valenzuela, 09/13/2020 11:10 AM Mery Alcocer MD DEXA Final Result from Last 3 Months or Most Recently Relevant to Health Maintenance Insurance MEDICARE [facility] Care Teams Wardrobe Coordinator Relationship Specialty Start Date End Date Mery Alcocer MD PCP - General FAMILY PRACTICE 05/08/19
--- OUTSIDE RECORDS SUMMARY | 2025-04-28 11:09 | XMS_ITS | Encounter Summary ---
Author Organization [facility] Address [address] [place] [address] Care Team Providers Care Communications Strategist Name Role Phone Mery Singer MD Primary Care Provider Encounter Details Date Type Department Care Team (Latest Contact Info) Description 04/27/2025 Travel Social History Tobacco Use Types Packs/Day Years [...] on file documented as of this encounter Plan of Treatment Upcoming Encounters Date Type Department Care Team (Late st Contact Info) Description 05/05/2025 3:00 PM WEB PRESSMAN Appointment [facility] [address] [place] [address] Natalie Beaulieu NP [address] [place] [address] [place] [address] [place] [address] 05/08/2025 11:00 AM WEB PRESSMAN Appointment [facility] [address] [place] [address] Natalie Beaulieu NP [facility] [place] [address] Mi Sanchez, FABRICATION OPERATOR 05/12/2025 11:15 AM WEB PRESSMAN Appointment [facility] [address] [place] [address] Natalie Beaulieu, CEMENT SACK BREAKER [address] [place] [address] [place] [address] [place] [address] 05/15/2025 9:00 AM WEB PRESSMAN Appointment [facility] [address] [place] [address] Natalie Beaulieu, CEMENT SACK BREAKER [address] [place] [address] Tiana Dixon, FABRICATION OPERATOR 05/18/2025 11:15 AM WEB PRESSMAN Appointment [facility] [address] [place] [address] Natalie Beaulieu, CEMENT SACK BREAKER [address] [place] [address] [place] [address] [place] [address] 05/22/2025 10:00 AM WEB PRESSMAN Appointment [facility] [address] [place] [address] Natalie Beaulieu, CEMENT SACK BREAKER [address] [place] [address] Tiana Dixon, FABRICATION OPERATOR 05/26/2025 9:15 AM WEB PRESSMAN Appointment [facility] [address] [place] [address] Natalie Beaulieu, CEMENT SACK BREAKER [address] [place] [address] Tiana Dixon, FABRICATION OPERATOR 05/29/2025 9:15 AM WEB PRESSMAN Appointment [facility] [address] [place] [address] Nikki Bradley, DPT [address] [place] [address] Natalie Beaulieu NP [address] [place] [address] 06/02/2025 10:30 AM WEB PRESSMAN Appointment [facility] [address] [place] [address] Nikki Bradley, DPT [address] [place] [address] Tiaan Dixon PTA 06/05/2025 10:30 AM WEB PRESSMAN Appointment [facility] [address] [place] [address] Nikki Bradley, DPT [address] [place] [address] Tiana Dixon PTA documented as of this encounter Visit Diagnoses Not on filedocumented in this encounter Care Teams Communications Strategist Relationship Specialty Start Date End Date Mery Singer MD PCP - General FAMILY PRACTICE 05/08/19 documented as of this encounter
== END 2025-04-28 10:33 | disposition home or self-care (01) ==
LOC: ANHFOHIMG 10:33
PROVIDERS: PCP Family Medicine; Visit Provider Family Medicine
DX: R92.8 Other abnormal and inconclusive findings on diagnostic imaging of breast (principal); N60.41 Mammary duct ectasia of right breast
CPT/HCPCS: 76642; 77061; 77065; G0279